=== PATIENT | female | born 1955 | race Caucasian/White ===

== ENCOUNTER 2019-04-23 10:47 | Observation (INO) | payer MEDICARE, OTHER ==
[2019-04-23 11:31] LABS: ABS Basophils 0.1 10^3/ul (0-0.2); ABS Eosinophils 0.1 10^3/ul (0-0.6); ABS Lymphocytes 2.1 10^3/ul (1.0-4.8); ABS Monocytes 0.5 10^3/ul (0-0.8); ABS Neutrophils 4.1 10^3/ul (1.5-7.7); Eosinophil % 1.4 %; Hematocrit 43 % (35-47); Lymphocyte % 31.1 %; Mean Corpuscular HGB Conc 35 g/dL (31-36); Mean Corpuscular Hemoglobin 32 pg (27-31); Mean Corpuscular Volume 92 fL (80-97); Mean Platelet Volume 9.9 fL (7.4-10.4); Nucleated Red Blood Cells % 0.1; Platelet Count 231 10^3/uL (150-450); Red Blood Count 4.63 10^6 /uL (3.70-4.87); Red Cell Distribution Width 13 % (10-15); White Blood Count 6.9 10^3/uL (3.5-10.8)
[2019-04-23] MEDS ORDERED: Metoprolol Tartrate IV* 1 MG/ML 5 ML VIAL IV ONE (11:33)
--- NOTE | 2019-04-23 11:38 | ED ---
HPI Cardiac - HPI Summary HPI Summary: Patient is a 63 y/o F presenting to ED with complaints of palpitations and fatigue. Sx have been present for the past three days and is noted to be mostly present when she is lying down to sleep. Patient also makes note of an episode five days ago when she experienced a "spell" of diaphoresis, lower back pain, and fatigue while at [facility]. This episode spontaneously resolved. Patient was evaluated by her PCP and was advised to come to ED for further evaluation. While lying in the stretcher, she reports only feeling fatigued and denies palpitations and dizziness at present. Patient denies having experienced chest pain. Patient is on Lisinopril, Metformin, and Klonopin. She denies Hx of thyroid issues. PSHx of appendectomy, cholecystectomy, breast reduction, and 2 c -sections. Patient is a non-smoker and denies alcohol and substance usage. Pt denies any fever, chills, erythema of eyes, sore throat, CP, SOB, cough, abdominal pain, N/V, dysuria, hematuria, myalgia, edema, rash, or dizziness. On triage, pain is rated 0/10, nothing is noted to aggravate/alleviate Sx. Home medications and allergies are reviewed. - History of Current Complaint Chief Complaint: EDGeneral Stated Complaint: RAPID HEART COMMING FROM DOC OFFICE Time Seen by Provider: 04/23/19 10:56 Hx Obtained From: Patient Onset/Duration: Started Days Ago, Resolved Timing: Intermittent, Lasting Days Current Severity: None Pain Intensity: 0 Pain Scale Used: 0-10 Numeric Character: Fast Aggravating Factor(s): Nothing Alleviating Factor(s): Nothing Associated Signs and Symptoms: Positive: Diaphoresis, Palpitations, Back Pain, Other: - patient endorses fatigue; denies any fever, chills, erythema of eyes, sore throat, CP, SOB, cough, abdominal pain, N/V, dysuria, hematuria, myalgia, edema, rash, or dizziness. Negative: Chest Pain, Dizziness, Shortness of Breath , Swelling, Fever, Chills, Nausea, Abdominal Pain, Calf Pain/Swelling, Vomiting - Allergy/Home Medications Allergies/Adverse Reactions: Allergies Allergy/AdvReac Type Severity Reaction Status Date / Time No Known Allergies Allergy Verified 04/23/19 11:29 Home Medications: Home Medications Lisinopril TAB* [Prinivil TAB 10 MG*] 20 mg PO DAILY 04/23/19 [History Confirmed 04/23/19] metFORMIN* [Glucophage 1000 MG TAB *] 1,000 mg PO BID 04/23/19 [History Confirmed 04/23/19] PMH/Surg Hx/FS Hx/Imm Hx Endocrine/Hematology History: Reports: Hx Diabetes - II Denies: Hx Thyroid Disease Cardiovascular History: Reports: Hx Hypertension Respiratory History: Denies: Hx Asthma, Hx Chronic Obstructive Pulmonary Disease (COPD) GI History: Reports: Hx Ulcer - gerd - Surgical History Surgery Procedure, Year, and Place: breast reduction. yasm[place]. appe. tonsils/ adenoids. csection x2 Infectious Disease History: No Infectious Disease History: Denies: Hx Hepatitis, Hx Human Immunodeficiency Virus (HIV), History Other Infectious Disease, Traveled Outside the [place] in Last 30 Days - Family History Known Family History: Negative: Cardiac Disease, Hypertension, Diabetes - Social History Alcohol Use: None Substance Use Type: Reports: None Smoking Status (MU): Never Smoked Tobacco Review of Systems Positive: Fatigue, Skin Diaphoresis. Negative: Fever, Chills Negative: Erythema Negative: Sore Throat Positive: Palpitations. Negative: Chest Pain Negative: Shortness Of Breath, Cough Negative: Abdominal Pain, Vomiting, Nausea Negative: dysuria, hematuria Positive: Myalgia - POSITIVE - BACK PAIN . Negative: Edema Negative: Rash Neurological: Other - NEGATIVE - DIZZINESS All Other Systems Reviewed And Are Negative: Yes Physical Exam - Summary Physical Exam Summary: Constitutional: Well-developed, Well-nourished, Alert. (-) Distressed Skin: Warm, Dry HENT: Normocephalic; Atraumatic Eyes: Conjunctiva normal Neck: Musculoskeletal ROM normal neck. (-) JVD, (-) Stridor, (-) Tracheal deviation Cardio: Rapid regular heart rate, Heart sounds normal; Intact distal pulses; The pedal pulses are 2+ and symmetric. Radial pulses are 2+ and symmetric. (-) Murmur Pulmonary/Chest wall: Effort normal. (-) Respiratory distress, (-) Wheezes, (-) Rales Abd: Soft, (-) tenderness, (-) Distension, (-) Guarding, (-) Rebound Musculoskeletal: (-) Edema Lymph: (-) Cervical adenopathy Neuro: Alert, Oriented x3 Psych: Mood and affect Normal Triage Information Reviewed: Yes Vital Signs On Initial Exam: Initial Vitals Temp Pulse Resp BP Pulse Ox 98.8 F 160 24 125/73 100 04/23/19 10:51 04/23/19 10:51 04/23/19 10:51 04/23/19 10:51 04/23/19 10:51 Vital Signs Reviewed: Yes Diagnostics - Vital Signs Vital Signs Temp Pulse Resp BP Pulse Ox 04/23/19 11:15 97 04/23/19 11:10 156 18 97 04/23/19 11:09 156 16 138/104 97 04/23/19 10:51 98.8 F 160 24 125/73 100 - Laboratory Result Diagrams: 04/24/19 05:50 04/24/19 05:49 Lab Statement: Any lab studies that have been ordered have been reviewed, and results considered in the medical decision making process. - Radiology CHEST X-RAY Radiology Interpretation Completed By: Radiologist Summary of Radiographic Findings: IMPRESSION: NO ACTIVE CARDIOPULMONARY DISEASE. THIS REPORT WAS REVIEWED BY DR. GALINDO. - EKG 1100 Cardiac Rate: Other Rate - atrial flutter with rate of 157 BPM EKG Rhythm: Atrial Flutter Summary of EKG Findings: EKG showed atrial flutter with rate of 157 BPM, no STEMI. Re-Evaluation - Re-Evaluation First Eval Re-Evaluation Time: 12:13 Comment: Patient was given two rounds of adenosine. She experienced a momentary response to the medications, but no lasting effect. Patient to finish IV fluid bolus and then will be started on Cardizem drip. Disposition - Course Course Of Treatment: Patient is a 63 y/o F presenting to ED with complaints of palpitations and fatigue. Sx have been present for the past three days and is noted to be mostly present when she is lying down to sleep. Patient also makes note of an episode five days ago when she experienced a "spell" of diaphoresis, lower back pain, and fatigue while at [facility]. This episode spontaneously resolved. Patient was evaluated by her PCP and was advised to come to ED for further evaluation. While lying in the stretcher, she reports only feeling fatigued and denies palpitations and dizziness at present. Patient denies having experienced chest pain. Patient is on Lisinopril, Metformin, and Klonopin. She denies Hx of thyroid issues. PSHx of appendectomy, cholecystectomy , breast reduction, and 2 c-sections. Patient is a non-smoker and denies alcohol and substance usage. On physical exam, patient is noted to have rapid regular heart rate. EKG showed atrial flutter with rate of 157 BPM, no STEMI. Labs showed MCH 32, potassium 3, chloride 100, anion gap 12, BUN/creatinine ratio 36.,4, glucose 411, lactic acid 2.8, TSH 7.39, Free t4 0.82. First trop was negative. CXR IMPRESSION: NO ACTIVE CARDIOPULMONARY DISEASE. During ED course, patient received fluids, klor con er tab 40 meq PO, Lopressor 5 mg IV, insulin 5 units SUBCUT. Patient was given two rounds of adenosine, 18 mg in total. She experienced a momentary response to the medications, but no lasting effect. Patient to finish IV fluid bolus and then will be started on Cardizem drip. Patient was given diltiazem 10 mg IV SLOW PU. 1239 Patients case was discussed with Dr. Peck, Dr. Peck will evaluate the patient. 1302 Dr. Peck had a conversation with tank insulator rubber with regards to possible cardioversion of the patient, rehabilitation worker to be consulted. 1307 Patients case was discussed with DR. Dey (rehabilitation worker), who recommends FRANCES cardioversion tomorrow morning, glucose control, and anticoagulants. This was relayed to Dr. Peck, who accepts the patient for admission. Patient is agreeable with admission. - Diagnoses Provider Diagnoses: Atrial flutter - Physician Notifications Discussed Care Of Patient With: Susan Peck Time Discussed With Above Provider: 12:39 Instructed by Provider To: Other - 1239 Patients case was discussed with Dr. Peck, Dr. Peck will evaluate the patient. 1302 Dr. Peck had a conversation with tank insulator rubber with regards to possible cardioversion of the patient, rehabilitation worker to be consulted. 1307 Patients case was discussed with DR. Dey (rehabilitation worker), who recommends FRANCES cardioversion tomorrow morning, glucose control, and anticoagulants. This was relayed to Dr. Peck, who accepts the patient for admission. - Critical Care Time Critical Care Time: 30-74 min - 60 minutes Discharge - Sign-Out/Discharge Documenting (check all that apply): Patient Departure - admit - Discharge Plan Condition: Stable Disposition: ADMITTED TO [facility] - Billing Disposition and Condition Condition: STABLE Disposition: Admitted to [facility] - Attestation Statements Document Initiated by Chaparro: Yes Documenting Scribe: ROSEMARY CASTELLANOS Provider For Whom Chaparro is Documenting (Include Credential): MAGDIEL GALINDO MD Scribe Attestation: ROSEMARY Stevens, scribed for MAGDIEL GALINDO MD on 04/27/19 at 0818. Scribe Documentation Reviewed: Yes Provider Attestation: The documentation as recorded by the ROSEMARY riggins accurately reflects the service I personally performed and the decisions made by me, MAGDIEL GALINDO MD Status of Scribe Document: Viewed
[2019-04-23 11:50] LABS: Albumin 4.2 g/dL (3.2-5.2); Calcium 10.2 mg/dL (8.6-10.3); Total Bilirubin 0.6 mg/dL (0.2-1.0)
[2019-04-23] MEDS ORDERED: Potassium Chlor TAB* 20 MEQ TAB.ER PO ONE (11:52)
[2019-04-23 11:55] LABS: Troponin I 0.01 ng/mL (<0.04)
[2019-04-23] MEDS ORDERED: NS 0.9% 1000 ML** 1,000 ML IV ONE (11:55)
[2019-04-23 11:56] LABS: Albumin/Globulin Ratio 1.4 (1-3); BUN/Creatinine Ratio 36.4 (8-20); EGFR African American 134.2 (>60); EGFR Non-African American 110.9 (>60); Total Protein 7.2 g/dL (6.4-8.9)
[2019-04-23] MEDS ORDERED: Adenosine* 3 MG/ML VIAL IV PUSH ONE (11:56)
[2019-04-23] MEDS ORDERED: Adenosine* 3 MG/ML VIAL ONE (11:57)
[2019-04-23] MEDS ORDERED: Diltiazem IV push/loading dose 5 MG/ML 5 ML vial (25 mg) IV SLOW PU ONE (12:14)
[2019-04-23 12:20] LABS: TSH (Thyroid Stimulating Horm) 7.39 mcIU/mL (0.34-5.60)
[2019-04-23 12:24] LABS: Free T4 0.82 ng/dL (0.61-1.12)
[2019-04-23] MEDS ORDERED: Insulin REGULAR(*) 1 UNITS UNIT SUBCUT ONE (12:26)
[2019-04-23] MEDS ORDERED: Digoxin IV* 0.5 MG/2 ML AMP (0.25 MG/ML) IV SLOW PU ONE ×2 (15:01→20:05)
[2019-04-23] MEDS ORDERED: clonazePAM TAB(*) 0.5 MG PO PRN (15:02)
[2019-04-23] MEDS ORDERED: Acetaminophen TAB* 325 MG PO PRN (15:03)
[2019-04-23] MEDS ORDERED: Dextrose 50% Syringe 50 ML* 25 GM/50 ML SYRINGE IV PUSH PRN (15:06)
[2019-04-23] MEDS ORDERED: NS 0.9% 1000 ML** 1,000 ML IV SCH (15:15)
[2019-04-23 15:38] LABS: Magnesium 1.1 mg/dL (1.9-2.7)
--- NOTE | 2019-04-23 17:42 | HP ---
CC: Dr. Day; Dr. Dey, Cardiology * HISTORY AND PHYSICAL: DATE OF ADMISSION: 04/23/19 PRIMARY CARE PROVIDER: Dr. Day. OTHER PROVIDER: Dr. Dey, Cardiology. ATTENDING PHYSICIAN: Dr. Peck * (dictated by Jorge L Castro NP). CHIEF COMPLAINT: Tachycardia. HISTORY OF PRESENT ILLNESS: Ms. Bailey is a 63-year-old female with a past medical history significant for diabetes, hypertension, depression; who presents to the emergency department today per instructions from her primary care provider. The patient reports that last weekend she was walking in [facility] and suddenly felt low back pain, bilateral leg pain and severely fatigued. The patient sat down, took medication for her back, and went home. She reports that the episode resolved. Given these symptoms on Saturday morning, she called her primary care provider for a followup appointment and she was scheduled to see the primary care provider today. She reports on presentation to her primary care provider's office she was noted to be tachycardic; therefore , was sent to the emergency department. The patient also reports that for the past 3 days she has noted her heart racing when she lies down and turns her head to the right. In addition, she has had a few episodes of diaphoresis, specifically with exertion. The patient is unsure if her back and leg pain has improved much as she has been resting and not exerting herself much. The patient denies fever, chills, sore throat, chest pain, shortness of breath, cough, abdominal pain, nausea, vomiting, dysuria, hematuria, myalgias, edema, rash, dizziness, recent travel, recent illness, recent antibiotic use. The patient does report diarrhea that has been ongoing for about 1 week and has not worsened or improved in its severity. She denies abdominal pain. While in the emergency department, the patient had an EKG, which revealed atrial flutter at a rate of 157. Given these findings, the patient had 2 rounds of adenosine which had no lasting effect. She was given IV bolus of fluid. She was given 10 mg IV of diltiazem, which had no effect on heart rate, but did decrease her blood pressure to the low 90 systolically. Given the patient's continued arrhythmia, she will be admitted to telemetry for further evaluation and treatment. PAST MEDICAL HISTORY: 1. Diabetes. 2. Hypertension. 3. Depression. PAST SURGICAL HISTORY: 1. Appendectomy. 2. Cholecystectomy. 3. Breast reduction. 4. . HOME MEDICATIONS: 1. Metformin 1000 mg p.o. b.i.d. 2. Lisinopril 20 mg p.o. daily. 3. Cymbalta 90 mg p.o. daily. 4. Nexium 40 mg p.o. daily. 5. Clonazepam 1.5 mg p.o. t.i.d. p.r.n. ALLERGIES: No known drug allergies. FAMILY HISTORY: The patient has unknown family history as she was adopted. SOCIAL HISTORY: The patient reports she is a previous smoker. She reports she quit about 30 years ago. The patient reports minimal social alcohol intake. The patient denies drug use. The patient is retired. The patient lives alone. The patient has been independent in her ADLs. The patient's surrogate decision maker will be her daughter, Angelita Campos, , in the event she cannot make decisions for herself. REVIEW OF SYSTEMS: A 14-point review of systems was performed and all pertinent positive and negative findings are in the HPI. All others were negative. PHYSICAL EXAMINATION GENERAL: Ms. Bailey is a well-developed, well-nourished, slightly obese woman, sitting in bed, appears to be in no acute distress. Appears stated age. VITAL SIGNS: Temp 98.8, HR 155, RR 19, O2 saturation 98% on room air, BP manually 92/66. HEENT: EOMs intact. PERRLA. Oral mucosa is moist without lesions. Posterior pharynx is clear. NECK: Full range of motion. No lymphadenopathy. RESPIRATORY: Symmetrical chest expansion. No accessory muscle use. Lungs are clear to auscultation. No rhonchi, wheezes, or rales. CARDIAC: S1, S2 present. No murmurs, rubs, or gallops. Fast rate. No JVD. ABDOMEN: Soft, nontender to palpation. Bowel sounds normoactive. EXTREMITIES: Skin is warm and smooth bilaterally. No edema. No clubbing or cyanosis. Pedal pulses 2+ bilaterally. MUSCULOSKELETAL: Full range of motion. No pain or deformities. NEURO: Awake, alert, and oriented x4. Motor strength is 5/5 in the upper and lower extremities. SKIN: Grossly intact without lesions. DIAGNOSTIC STUDIES/LAB DATA: WBC 6.9, hemoglobin 15, hematocrit 43, platelets 231. Sodium 137, potassium 3.0, chloride 100, carbon dioxide 25, anion gap 12, BUN 20, creatinine 0.55, glucose 411, lactic acid 2.8. TSH 7.39. ASSESSMENT AND PLAN: Ms. Bailey is a 63-year-old female with a past medical history significant for diabetes, hypertension, depression; who presents to the emergency department today with increased heart rate and was found to be in atrial fibrillation/flutter with rapid ventricular response. The patient will be admitted OBV for further evaluation and possible FRANCES with cardioversion. 1. Atrial flutter with rapid ventricular response. As mentioned above, the patient received a fluid bolus while in the emergency department with no effect on heart rate. The patient received adenosine, which had momentary effect. The patient received Cardizem, which had momentary effect on heart rate, but decreased blood pressure. I have placed a call to Dr. Dey, who recommended digoxin 0.5 mg IV push x1 now. Plan for the patient to be n.p.o. after midnight. Plan for the patient to undergo a FRANCES with possible cardioversion tomorrow. In preparation for this, the patient will be started on Eliquis for anticoagulation. 2. Hypokalemia. As mentioned above, the patient's potassium in the ER was 3.0. The patient received 40 mEq p.o. in the ED. I will repeat this tomorrow and possibly the patient will need further repletion. 3. Electrolyte derangement. Given the patient's low potassium, I have also ordered magnesium to be added on to the patient's ER labs. 4. Hyperglycemia. As mentioned above, the patient's glucose in the emergency department was 411. The patient received 5 units of insulin while in the emergency department. I have ordered this to be repeated and I will dose insulin based on that result. I have also placed the patient on fingersticks a.c. and h.s. and a sliding scale. The patient has known history of diabetes and is on metformin. I have held the patient's metformin while hospitalized. I have also added a hemoglobin A1c to be obtained tomorrow. 5. Lactic acid. The patient has a slightly elevated lactic acid of 2.8. I have ordered a repeat lactic acid to be drawn now as it has been 4 hours. 7. Hypothyroid. As mentioned above, the patient does have an elevated TSH at 7.39. I suspect this could be secondary to the patient's acute illness; therefore, I will not place the patient on any medication at this time. I would recommend that this is repeated as an outpatient. 8. Diabetes. As mentioned above, the patient will be on a sliding scale and fingersticks a.c. and h.s. Metformin will be held. 9. Hypertension. I will hold the patient's home medication of lisinopril as she is hypotensive and I will monitor accordingly. 10. Depression. The patient has been slowly decreasing herself from Cymbalta. She reports her last dose was yesterday. She reports she has been weaning for about 2 weeks. I have reordered this as the patient would like to restart it, although we should discuss possible SSRI as an outpatient. 11. FEN: The patient will receive a heart-healthy diet with no caffeine and will be n.p.o. after midnight. The patient will also receive IV fluids given her hyperglycemia and slightly elevated lactic acid. 12. Code status: The patient is a full code. 13. DVT prophylaxis: Based on the DVT Risk Assessment, the patient is high risk. I will order Eliquis as mentioned above. TIME SPENT: Approximately 65 minutes was spent on this admission, greater than half the time was spent with the patient and her family obtaining my history, performing physical exam, and reviewing my plan of care. The case has been reviewed with my attending, Dr. Davis, who is in agreement with my plan of care. Reviewed by JORGE L CASTRO NP 04/25/19 @ 1812 [id number]/[facility] #: [id number] [place]
[2019-04-23] MEDS: Insulin LISPRO* 1 UNITS UNIT SUBCUT SCH ×2 (17:50→20:56)
[2019-04-23] MEDS: Metoprolol Tartrate IV* 1 MG/ML 5 ML VIAL IV PRN (19:53)
[2019-04-23] MEDS: Apixaban* 5 MG TAB PO SCH (19:53)
[2019-04-23] MEDS ORDERED: Magnesium Sulf 4 GM/100 ML IV* 4,000 MG/100 ML BAG IVPB ONE (20:07)
--- NOTE | 2019-04-23 20:42 | CONSULT ---
Subjective Date of Service: 04/23/19 Interval History: Admission Date: 04/23/19 Consult date 04/23/2019 Service: Hospitalist PCP: Dr. Day CC: Weakness, back pain Reason for consult: atrial flutter HISTORY OF PRESENT ILLNESS: Ms. Bailey is a 63-year-old woman with a history as below. She tells me she has felt sort of fatigued for weeks if not months. Last weekend she developed back and leg pain while ambulating which resolved. She also had some episodes exertional fatigue but not outright dyspnea, chest pain, palpitations or syncope. She was found with rapid atrial flutter and heart rates with IV lopressor, diltiazem and digoxin have been difficult to control without causing lower BP's. Patient denies hx of CHF, MT or TIA/CVA PAST MEDICAL HISTORY: 1. Diabetes, patient is uncertain of hgba1c 2. Hypertension. 3. Depression. 4. GERD. Chronic PPI. Had EGD in her 30's PAST SURGICAL HISTORY: 1. Appendectomy. 2. Cholecystectomy. 3. Breast reduction. 4. . ALLERGIES: No known drug allergies. FAMILY HISTORY: The patient has unknown family history as she was adopted. SOCIAL HISTORY: The patient reports she is a previous smoker. She reports she quit about 30 years ago. The patient reports minimal social alcohol intake. The patient denies drug use. The patient is retired. The patient lives alone. The patient has been independent in her ADLs. The patient's surrogate decision maker will be her daughter, Angelita Campos, , in the event she cannot make decisions for herself. Medications Active Medications: Acetaminophen (Tylenol Tab*) 650 mg PO Q4H PRN PRN Reason: FEVER/PAIN Last Admin: 04/23/19 18:47 Dose: 650 mg Apixaban (Eliquis*) 5 mg PO BID JORJE Last Admin: 04/23/19 19:53 Dose: 5 mg Clonazepam (Klonopin Tab(*)) 1.5 mg PO TID PRN PRN Reason: ANXIETY Dextrose (D50w Syringe 50 Ml*) 12.5 gm IV PUSH .FOR FS < 60 - SS PRN PRN Reason: FS < 60 Duloxetine HCl (Cymbalta Cap*) 90 mg PO DAILY [facility] Magnesium Sulfate (Magnesium Sulf 4 Gm/100 Ml Iv*) 4,000 mg in 100 mls @ 33.333 mls/hr IVPB ONCE ONE Stop: 04/23/19 23:06 Insulin Human Lispro (Humalog*) 0 units SUBCUT ACHS [facility]; Protocol Last Admin: 04/23/19 17:50 Dose: 6 unit Metoprolol Tartrate (Lopressor Iv*) 5 mg IV Q6H PRN PRN Reason: HEART RATE/PULSE Last Admin: 04/23/19 19:53 Dose: 5 mg Pantoprazole Sodium (Protonix Tab*) 40 mg PO DAILY [facility] Home Medications: DULoxetine DR CAP* [Cymbalta CAP*] 90 mg PO DAILY 10/19/15 [History Confirmed ] Esomeprazole Magnesium [Nexium] 40 mg PO DAILY 10/19/15 [History Confirmed 04/23] clonazePAM TAB(*) [KlonoPIN TAB(*)] 1.5 mg PO TID PRN 10/19/15 [History Confirmed 04/23/19] Lisinopril TAB* [Prinivil TAB*] 20 mg PO DAILY 04/23/19 [History Confirmed 04/23] metFORMIN* [Glucophage 1000 MG TAB *] 1,000 mg PO BID 04/23/19 [History Confirmed 04/23/19] Review of Systems - Measurements Intake and Output: Intake and Output Last 24 Hours 04/21/19 04/22/19 04/23/19 04/24/19 06:59 06:59 06:59 06:59 Intake Total 1120 Balance 1120 Weight 243 lb 1.6 oz Intake: IV Fluids 1000 Oral 120 - Review of Systems Constitutional Symptoms: Positive: Weakness, Fatigue Negative: Weight Gain, Weight Loss, Fever, Night Sweats Dermatology: Negative: Rash, Skin Lesions HEENT: Negative: Change in Hearing, Vertigo Eyes: Negative: Change in Vision, Double Vision Thyroid: Negative: Cold Intolerance, Heat Intolerance, Weight Loss, Weight Gain Pulmonary: Negative: Cough, Sputum, Hemoptysis, Respiratory Distress, COPD, Asthma Cardiology: Negative: Chest Pain, Palpitations, Swelling of Ankles, Edema, Faintness, Syncope, Claudication, Paroxysmal Nocturnal Dyspnea, Orthopnea Gastroenterology: Negative: Abdominal Pain, Nausea, Vomiting, Anorexia, Blood in Stools, Haematemesis Genital - Urinary: Negative: Hematuria, Polyuria Musculoskeletal: Negative: Joint Pain, Joint Stiffness, Arthritis Endocrinology: Positive: Obesity, Diabetes, Hyperglycemia Negative: Polydipsia, Polyuria Hematologic/Lymphatic: Negative: Anemia, Hx Leukemia, Hx Lymphoma, Use of Anticoagulant, Use of Antiplatelet Drugs Neurology: Negative: Headaches, Migraines, Change in Vision, Diplopia, Dizziness, Hx of Stroke\TIA, Hx Seizures Psychiatry: Negative: Unusual Anxiety, Suicidal Ideation Allergic/Immunologic: Negative: Hx HIV, Immunocompromise Review of Systems Statement: All other review of systems negative, unless stated above. Objective Vital Signs: Temp Pulse Resp BP Pulse Ox 98 F 153 15 130/74 99 04/23/19 16:48 04/23/19 16:48 04/23/19 16:48 04/23/19 16:48 04/23/19 16:48 Oxygen Devices in Use Now: None Appearance: nad, pleasant Ears/Nose/Mouth/Throat: Clear Oropharnyx, Mucous Membranes Moist Neck: Trachea Midline, - - uncertain jvp Respiratory: Symmetrical Chest Expansion and Respiratory Effort, Clear to Auscultation Cardiovascular: No Edema, - - tachycardic, regular Abdominal: NL Sounds; No Tenderness; No Distention Extremities: No Edema Skin: No Rash or Ulcers Neurological: Alert and Oriented x 3, NL Sensation Laboratory Results: 04/23/19 11:18 04/23/19 11:18 mg 1.1 Total Bilirubin 0.60 mg/dL (0.2-1.0) 04/23/19 11:18 AST 20 U/L (13-39) 04/23/19 11:18 ALT 26 U/L (7-52) 04/23/19 11:18 Alkaline Phosphatase 92 U/L (34-104) 04/23/19 11:18 Total Protein 7.2 g/dL (6.4-8.9) 04/23/19 11:18 Albumin 4.2 g/dL (3.2-5.2) 04/23/19 11:18 Globulin 3.0 g/dL (2-4) 04/23/19 11:18 Albumin/Globulin Ratio 1.4 (1-3) 04/23/19 11:18 TSH 7.39 mcIU/mL (0.34-5.60) H 04/23/19 11:18 04/23/19 04/23/1904/23/19 11:18 13:27 15:13 Troponin I 0.01 0.01 0.01 Diagnostic Imaging: Exam Date: 04/23/19 CHEST AP OR PORT IMPRESSION: NO ACTIVE CARDIOPULMONARY DISEASE. EKG Data: ekg today shows 2:1 atrial flutter, likely typical, no ischemic changes, rate ~ 160 bpm Assessment/Plan 1. Symptomatic typical rapid atrial flutter with difficult HR control of uncertain duration - Chads2-vasc score at least 4 2. Low magnesium level, significant - Level 1.1 - suspect PPI related 3. Low potassium - 3.0 - Likely related to #2 4. Obesity 5. DM 6. HTN 7. ? hypothyroidism - Eliquis 5 mg po bid. Risks, benefits alternatives discussed. Advised avoid aspirin and nsaids - For tonight given another 250 mcg IV digoxin x 1 now (ordered). Can use PRN IV lopressor overnight and given another 250 mcg IV digoxin 8 hours from now if needed. Will plan on FRANCES/CV tomorrow (risks/benefits/alternatives discussed and patient wished to proceed) if does not convert with electrolyte replacement - Give 4 grams IV magnesium x 1 now (ordered). Recheck tomorrow AM. Will need chronic high dose oral supplementation if stays on PPI and this should keep potassium higher as well. 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 Thank you for allowing me to participate in the cardiovascular care of this patient. Please do not hesitate to contact me with questions or concerns.
[2019-04-24 05:58] LABS: ABS Basophils 0.1 10^3/ul (0-0.2); ABS Eosinophils 0.2 10^3/ul (0-0.6); ABS Lymphocytes 2.8 10^3/ul (1.0-4.8); ABS Monocytes 0.4 10^3/ul (0-0.8); ABS Neutrophils 3.5 10^3/ul (1.5-7.7); Eosinophil % 2.4 %; Hematocrit 40 % (35-47); Mean Corpuscular HGB Conc 35 g/dL (31-36); Mean Corpuscular Hemoglobin 32 pg (27-31); Mean Corpuscular Volume 91 fL (80-97); Mean Platelet Volume 9.8 fL (7.4-10.4); Nucleated Red Blood Cells % 0.1; Platelet Count 195 10^3/uL (150-450); Red Blood Count 4.37 10^6 /uL (3.70-4.87); Red Cell Distribution Width 12 % (10-15)
[2019-04-24] MEDS: Metoprolol Tartrate IV* 1 MG/ML 5 ML VIAL IV PRN (05:59)
[2019-04-24 06:16] LABS: Albumin 3.7 g/dL (3.2-5.2); Albumin/Globulin Ratio 1.5 (1-3); BUN/Creatinine Ratio 21.7 (8-20); Calcium 8.8 mg/dL (8.6-10.3); EGFR Non-African American 136.3 (>60); Globulin 2.5 g/dL (2-4); HDL Cholesterol 29.6 mg/dL; Magnesium 1.6 mg/dL (1.9-2.7); Potassium 3.1 mmol/L (3.5-5.0); Total Bilirubin 1.1 mg/dL (0.2-1.0); Total Protein 6.2 g/dL (6.4-8.9)
[2019-04-24] MEDS ORDERED: Magnesium Sulf 4 GM/100 ML IV* 4,000 MG/100 ML BAG IVPB ONE (07:39)
[2019-04-24] MEDS ORDERED: Potassium Chlor TAB* 20 MEQ TAB.ER PO ONE (07:40)
[2019-04-24] MEDS ORDERED: KCL 20 MEQ/100 ML IVPREMIX* 20 MEQ/100 ML BAG IV ONE (07:41)
--- NOTE | 2019-04-24 07:49 | PN ---
Subjective Date of Service: 04/24/19 Interval History: f/u atrial flutter, electrolyte deficiencies resting comfortably HR 100's at rest in flutter No cp or dyspnea Medications Active Medications: Acetaminophen (Tylenol Tab*) 650 mg PO Q4H PRN PRN Reason: FEVER/PAIN Last Admin: 04/23/19 18:47 Dose: 650 mg Apixaban (Eliquis*) 5 mg PO BID [facility] Last Admin: 04/23/19 19:53 Dose: 5 mg Atorvastatin Calcium (Lipitor*) 40 mg PO 1700 [facility] Clonazepam (Klonopin Tab(*)) 1.5 mg PO TID PRN PRN Reason: ANXIETY Dextrose (D50w Syringe 50 Ml*) 12.5 gm IV PUSH .FOR FS < 60 - SS PRN PRN Reason: FS < 60 Duloxetine HCl (Cymbalta Cap*) 90 mg PO DAILY [facility] Famotidine (Pepcid Tab*) 20 mg PO BID [facility] Magnesium Sulfate (Magnesium Sulf 4 Gm/100 Ml Iv*) 4,000 mg in 100 mls @ 33.333 mls/hr IVPB ONCE ONE Stop: 04/24/19 10:38 Potassium Chloride (Potassium Chloride 20 Meq/100 Ml Ivpremix*) 20 meq in 100 mls @ 50 mls/hr IV ONCE ONE Stop: 04/24/19 09:40 Insulin Human Lispro (Humalog*) 0 units SUBCUT [facility]; Protocol Last Admin: 04/23/19 20:56 Dose: 6 unit Magnesium Oxide (Magox 400 Tab*) 400 mg PO BID [facility] Metoprolol Succinate (Toprol Xl Tab*) 25 mg PO BID [facility] Potassium Chloride (Klor Con Er Tab*) 40 meq PO ONCE ONE Stop: 04/24/19 07:41 Objective Vital Signs: Temp Pulse Resp BP Pulse Ox 97 F 73 17 127/69 97 04/24/19 04:00 04/24/19 04:00 04/24/19 04:00 04/24/19 04:00 04/24/19 04:00 Oxygen Devices in Use Now: None Appearance: nad, pleasant Ears/Nose/Mouth/Throat: Clear Oropharnyx, Mucous Membranes Moist Neck: Trachea Midline, - - uncertain jvp Respiratory: Symmetrical Chest Expansion and Respiratory Effort, Clear to Auscultation Cardiovascular: No Edema, - - irregular, no significant murmur noted Abdominal: NL Sounds; No Tenderness; No Distention Extremities: No Edema Skin: No Rash or Ulcers Neurological: Alert and Oriented x 3, NL Sensation Laboratory Results: 04/24/19 05:50 04/24/19 05:49 Total Bilirubin 1.10 mg/dL (0.2-1.0) H 04/24/19 05:49 AST 21 U/L (13-39) 04/24/19 05:49 ALT 24 U/L (7-52) 04/24/19 05:49 Alkaline Phosphatase 70 U/L (34-104) 04/24/19 05:49 B-Natriuretic Peptide 218 pg/mL (<=100) H 04/24/19 05:50 Total Protein 6.2 g/dL (6.4-8.9) L 04/24/19 05:49 Albumin 3.7 g/dL (3.2-5.2) 04/24/19 05:49 Globulin 2.5 g/dL (2-4) 04/24/19 05:49 Albumin/Globulin Ratio 1.5 (1-3) 04/24/19 05:49 Triglycerides 235 mg/dL 04/24/19 05:49 Cholesterol 173 mg/dL 04/24/19 05:49 LDL Cholesterol 96 mg/dL 04/24/19 05:49 HDL Cholesterol 29.6 mg/dL 04/24/19 05:49 TSH 7.39 mcIU/mL (0.34-5.60) H 04/23/19 11:18 04/23/19 04/23/19 04/23/19 11:18 13:27 15:13 Troponin I 0.01 0.01 0.01 mg replaced from 1.1 to 1.6 Diagnostic Imaging: Exam Date: 04/23/19 CHEST AP OR PORT IMPRESSION: NO ACTIVE CARDIOPULMONARY DISEASE. EKG Data: ekg today shows 2:1 atrial flutter, likely typical, no ischemic changes, rate ~ 160 bpm ekg today shows typical atrial flutter, rate controlled Assessment/Plan 1. Typical atrial flutter - Chads2-vasc score at least 4 2. Low magnesium level, significant - Level 1.1 on admission - suspect PPI related 3. Low potassium - 3.0 on admission - Likely related to #2 4. Obesity 5. DM 6. HTN 7. ? hypothyroidism - Continue Eliquis 5 mg po bid. - Start toprol 25 mg po bid (ordered) - Give another 4 grams IV magnesium x 1 now (ordered) - change PPI to H2 carley and start oral magnesium (ordered) - Give both oral and IV K today (ordered) - Start primary prevention lipitor 40 mg (, ordered, lipids noted) - Hgba1c pending, as per Primary service - Plan for FRANCES/CV later today, potential for discharge afterwards pending clinical course - Even with electrolyte deficiency as a potential cause, mcfp I think patient would likely benefit from an atrial flutter ablation as an outpatient. Thank you for allowing me to participate in the cardiovascular care of this patient. Please do not hesitate to contact me with questions or concerns.
[2019-04-24] MEDS: Insulin LISPRO* 1 UNITS UNIT SUBCUT SCH ×2 (08:00→14:52)
[2019-04-24] MEDS ORDERED: Metoprolol Succinate XL TAB* 25 MG PO SCH (08:00)
[2019-04-24] MEDS: Apixaban* 5 MG TAB PO SCH (08:01)
[2019-04-24] MEDS ORDERED: Famotidine TAB* 20 MG PO SCH (09:00)
[2019-04-24] MEDS ORDERED: Pantoprazole TAB * 40 MG TAB PO SCH (09:00)
[2019-04-24] MEDS ORDERED: Magnesium Oxide TAB* 400 MG PO SCH (09:00)
[2019-04-24] MEDS ORDERED: DULoxetine DR CAP* 30 MG CAP.DR PO SCH (09:00)
[2019-04-24] MEDS ORDERED: fentaNYL* 50 MCG/ML 2 ML VIAL (100 MCG VIAL) ONE ×2 (11:17→12:42)
[2019-04-24] MEDS ORDERED: Naloxone* 0.4 MG/ML 1 ML VIAL ONE (11:17)
[2019-04-24] MEDS ORDERED: Midazolam* 1 MG/ML 5 ML VIAL (5 MG) ONE (11:17)
[2019-04-24] MEDS ORDERED: Flumazenil* 0.1 MG/ML 5 ML MDV ONE (11:18)
[2019-04-24] MEDS ORDERED: Lidocaine 2% VISCOUS* 15 ML UDC ONE (11:18)
--- NOTE | 2019-04-24 13:05 | PROCNOTE ---
Cardiology Procedure Note FRANCES/CV 04/24/2019 Risks, benefits alternative discussed patient wished to proceed FRANCES no LA/LEOBARDO thrombus Patient received eliquis 5 mg po this AM 10 mg IV versed, 125 mcg IV fentanyl used for sedation Patient converted from 2:1 atrial flutter 150 bpm to NSR/ST ~ 100 bpm No complications Will increase toprol to 50 mg po bid (ordered) Continue other medications. If patient remains without further arrhythmias can be discharged from a cardiac standpoint later today with appropriate changes made in her diabetes medications (hgba1c 10.5) Will arrange cardiology follow up
--- NOTE | 2019-04-24 15:23 | TEE ---
*[facility]* [place] [address] Fax #: [phone] Transesophageal Echocardiogram Patient: Lynn, Height: 69 in / Eryn 175.3 cm : 1955 Weight: 240.5 lb / Study Date: 04/24/2019 109.3 kg Age: 63 BP: 139 / 71 Gender: F BMI/BSA: 35.6 kg/m^2 HR: / 2.24 m^2 *Molded Goods Inspector Trimmer: * Pebbles Cardenas RDCS RN *Referring Physician: * Denae MadrigalReading Physician: * Ky Dey MD Indications: Atrial Flutter. History: Risk factors: Hypertension. Diabetes mellitus. Conclusions Summary: 1. Left ventricle: Systolic function is normal. Wall motion is normal; there are no regional wall motion abnormalities. 2. Left atrium: The atrium is moderately to severely dilated. There is no evidence of a thrombus in the atrial cavity or appendage. 3. Aorta: There is mild atherosclerotic plaque visualized in the aorta. 4. No significant valvular abnormalities noted. Recommendations: Study followed by successful cardioversion from rapid atrial flutter to sinus rhythm. Study data: Diagnostic Transesophageal Echocardiogram Consent: The risks and benefits of the procedure, including alternatives were discussed with the patient and/or their health care applications sales representative and written informed consent was obtained. Procedure: Initial setup: The patient was brought to the laboratory in the fasting state.Intravenous access was obtained. Surface ECG leads, heart rate, heart rhythm, blood pressure measurements, pulse oximetric signals, and mainstream end-tidal CO2 tracings were monitored throughout the procedure. Sedation. Moderate sedation was administered by nursing staff. History and physical as well as labs were reviewed. An oral bite block was inserted for protection of oral dentition. The patient was placed in the left lateral decubitus position. Topical anesthesia was obtained using viscous lidocaine. A transesophageal probe was inserted by the attending ruching machine operator. Transesophageal echocardiography was performed, image quality was good, and all standard views were attempted within the limitations of patient tolerance and safety. Multiple 2D, color flow Doppler and spectral Doppler images were obtained. The transesophageal probe was removed. A bubble study was performed on Image 66. Location: Procedure room. Patient status: Inpatient. Patient room number: 431. Study completion: The patient tolerated the procedure well. There were no complications. Administered medications: Midazolam 10 mg IV. Fentanyl 125 mcg IV. Findings Left ventricle: The cavity size is normal. Systolic function is normal. Wall motion is normal; there are no regional wall motion abnormalities. Right ventricle: The cavity size is normal. Systolic function is normal. The estimated peak pressure is 31 mm Hg. Left atrium: The atrium is moderately to severely dilated. The appendage is of normal size. Emptying velocity is normal. There is no evidence of a thrombus in the atrial cavity or appendage. Right atrium: The atrium is mildly dilated. Atrial septum: No defect or patent foramen ovale is identified. Bubble study was negative. Image 66. Mitral valve: The valve is structurally normal. There is no evidence of stenosis. There is trace regurgitation. Aortic valve: The valve is structurally normal. The valve is trileaflet. There is no evidence of stenosis. There is no regurgitation. Tricuspid valve: The valve is structurally normal. There is no evidence of stenosis. There is mild regurgitation. Pulmonic valve: The valve is structurally normal. There is no evidence of stenosis. There is mild regurgitation. Aorta: There is mild atherosclerotic plaque visualized in the aorta. The aortic root is not dilated. The ascending aorta is not dilated. Pericardium: There is no pericardial effusion. Pulmonary arteries: The main pulmonary artery is normal-sized. Systolic pressure is within the normal range, estimated to be 31 mm Hg. Systemic veins: Inferior vena cava: The vessel is normal in size. Superior vena cava: The vessel is appears normal. Pulmonary veins: 2 of 4 veins are well seen. The flow of the pulmonary veins appears normal. Measurements Right ventricle Value Ref Tricuspid valve Value Ref Pressure, S 31 mm Hg ---- TR peak v 2.4 m/sec <=2.8 Peak RV-RA grad, S 23 mm Hg ----- Right atrium Value Ref Estimated RAP 8 mm Hg ---- Aortic root Value Ref Root diam 2.7 cm <4.3 Aortic valve Value Ref Evelyn diam, ED 2.0 cm ---- Ascending aorta Value Ref AAo AP diam, S 2.9 cm ----- Mitral valve Value Ref Peak E 0.91 m/sec ---- Pulmonary artery Value Ref Decel time 80 ms ---- Pressure, S 31.0 mm Hg ----- Peak grad, D 3.3 mm Hg ---- Legend: (L) and (H) manuel values outside specified reference range. Prepared and electronically signed by Ky Dey MD 04/24/2019 15:22
[2019-04-24 15:35] VITALS: BP 133/61
[2019-04-24] MEDS ORDERED: Atorvastatin* 40 MG TAB PO SCH (17:00)
--- NOTE | 2019-04-24 17:06 | PN ---
Subjective Date of Service: 04/24/19 Objective Active Medications: Acetaminophen (Tylenol Tab*) 650 mg PO Q4H PRN Apixaban (Eliquis*) 5 mg PO BID [facility] Atorvastatin Calcium (Lipitor*) 40 mg PO 1700 [facility] Clonazepam (Klonopin Tab(*)) 1.5 mg PO TID PRN Dextrose (D50w Syringe 50 Ml*) 12.5 gm IV PUSH .FOR FS < 60 - SS PRN Duloxetine HCl (Cymbalta Cap*) 90 mg PO DAILY [facility] Famotidine (Pepcid Tab*) 20 mg PO BID [facility] Insulin Human Lispro (Humalog*) 0 units SUBCUT ACHS [facility]; Protocol Magnesium Oxide (Magox 400 Tab*) 400 mg PO BID [facility] Metoprolol Succinate (Toprol Xl Tab*) 50 mg PO 0900,2100 [facility] Vital Signs: Temp Pulse Resp BP Pulse Ox 98.1 F 102 20 133/61 98 04/24/19 15:34 04/24/19 15:34 04/24/19 15:34 04/24/19 15:34 04/24/19 15:34 Oxygen Devices in Use Now: None Result Diagrams: 04/24/19 05:50 04/24/19 05:49 Assess/Plan/Problems-Billing Assessment: Ms. Bailey is a 63 yo F with a PMH of diabetes and depression who was admitted with afib RVR now s/p cardioversion. - Patient Problems (1) Afib Comment: - S/P succcessful cardioversion - CHADS Vasc 4, eliquis 5mg po BID - Magnesium and potassium repleted - Electrolytes low related to PPI - Metoprolol started - Will follow up with [facility] outpatient (2) Hyperlipidemia Comment: - Start lipitor (3) Depression Comment: - Continue duloxetine (4) GERD (gastroesophageal reflux disease) Comment: - Switch from PPI to H2 carley given electrolyte abnormalities (5) Diabetes Comment: - HgbA1c 10, on metformin only outpatient - Needs close follow up with Dr. Day (6) DVT prophylaxis Comment: (7) Full code status Comment:
[2019-04-24] MEDS ORDERED: Metoprolol Succinate XL TAB* 50 MG PO SCH (21:00)
--- NOTE | 2019-04-25 12:32 | DS ---
CC: Dr. Day; Dr. Dey * [facility] MEDICINE DISCHARGE SUMMARY: DATE OF ADMISSION: 04/23/19 DATE OF DISCHARGE: 04/24/19 PRIMARY CARE PHYSICIAN: Dr. Day. CITY WELLNESS COORDINATOR: Dr. Dey. ATTENDING PHYSICIAN: Dr. Hina Kim * (dictation provided by Andree Munguia NP ). PRIMARY DIAGNOSIS: Rapid atrial fibrillation status post successful cardioversion. SECONDARY DIAGNOSES: 1. Uncontrolled type 2 diabetes. 2. Hypertension. 3. Depression. PAST SURGICAL HISTORY: 1. Appendectomy. 2. Cholecystectomy. 3. Breast reduction. 4. . MEDICATIONS AT THE TIME OF DISCHARGE: 1. Metformin 1000 mg p.o. b.i.d. 2. Lisinopril 20 mg p.o. daily. 3. Duloxetine DR 90 mg p.o. daily. 4. Clonazepam 1.5 mg p.o. t.i.d. p.r.n. 5. Potassium chloride ER 10 mEq p.o. daily. 6. Metoprolol succinate 50 mg p.o. b.i.d. 7. Magnesium oxide 400 mg p.o. b.i.d. 8. Famotidine 20 mg p.o. b.i.d. 9. Atorvastatin 40 mg p.o. daily. 10. Apixaban 5 mg p.o. b.i.d. HOSPITAL COURSE: Ms. Bailey is a 63-year-old female, who presented to the emergency room on 04/23/19 with concerns for tachycardia. Please see the dictated H and P from Denae Madrigal NP, for complete details. In brief, the patient reported that over the weekend prior to admission, she had been walking in [facility], when she suddenly felt back pain, bilateral leg pain and severely fatigued. She called her primary care physician on Saturday and went in for an appointment on . She was noted to be tachycardic and therefore was sent to the emergency room. The patient did confirm at that point that she had noticed some episodes of her heart racing prior to admission. In the emergency room, she had an EKG which revealed atrial flutter at a heart rate of 157. The patient was given 2 rounds of adenosine, but there was no lasting effect. She was then given diltiazem. Call was placed to Dr. Dey when diltiazem was not successful in reducing her heart rate, but did cause her to be hypotensive and therefore digoxin bolus was started. Ms. Bailey was seen in consultation by Dr. Dey from Cardiology. He recommended a cardioversion, which was accomplished on 04/24/19. The patient also had repletion of electrolytes as her potassium was 3.0 and magnesium 1.1. By the day of discharge, her potassium was 3.1 and magnesium was 1.6. Dr. Dey and the hospitalist team have recommended multiple medication changes for Ms. Bailey. She will be discharged to home on Eliquis b.i.d. for stroke prevention in the setting of new onset atrial fibrillation. She is now newly on metoprolol, which will be added to her lisinopril both for blood pressure control as well as metoprolol will give heart rate control. We have switched her from a proton pump inhibitor to an H2 carley as this is our suspicion that this is what caused her low electrolytes and may have triggered the atrial fibrillation in the first place. She will have potassium and magnesium supplementation at home. We have started atorvastatin for primary prevention of coronary artery disease in the setting of diabetes. It has also been noted while here the patient's blood sugar was uncontrolled, hemoglobin A1c is 10.5. Here in the hospital, her blood sugar has been running approximately 200 to 230. She is on metformin only. As she does have close followup outpatient with her primary care physician, I am deferring medication changes for her diabetes to her primary care physician, Dr. Day. The patient has been instructed strongly to reduce sugar intake and to follow up with Dr. Day to ensure adequate blood glucose control in addition to atrial fibrillation management. Ms. Bailey is medically stable for discharge to home. She will be following up with Dr. Day and Dr. Dey. DISPOSITION: Home. DIET: Low carb, low salt, low fat. ACTIVITY: As tolerated. FOLLOWUP PLANS: 1. Please follow up with Dr. Day. The patient has been instructed to call on Saturday a.m. for an appointment. 2. Please follow up with Dr. Dey. Again, the patient has been instructed to call Saturday a.m. for an appointment. TIME SPENT: Approximately 60 minutes was spent in the discharge of this patient , more than half the time was spent with the patient at the bedside reviewing the events leading up to this hospitalization, performing the physical examination, and reviewing my plan of care. ANDREE MUNGUIA NP [id number]/CPS #: [id number] [email or web address]
== END 2019-04-24 19:00 | disposition home or self-care (01) ==
LOC: ED 10:47 → MEDTELE 15:03
PROVIDERS: ADMIT Internal Medicine; ATTEND Hospitalist
DX: I48.91 Unspecified atrial fibrillation (principal); E87.6 Hypokalemia; E11.65 Type 2 diabetes mellitus with hyperglycemia; R74.0 Nonspecific elevation of levels of transaminase and lactic acid dehydrogenase [LDH]; I10 Essential (primary) hypertension; E78.5 Hyperlipidemia, unspecified; K21.9 Gastro-esophageal reflux disease without esophagitis; I44.4 Left anterior fascicular block; E83.42 Hypomagnesemia; F32.9 Major depressive disorder, single episode, unspecified; Z79.01 Long term (current) use of anticoagulants; Z79.84 Long term (current) use of oral hypoglycemic drugs; Z79.899 Other long term (current) drug therapy; Z87.891 Personal history of nicotine dependence; E66.9 Obesity, unspecified
CPT/HCPCS: 36415; 71045; 80053; 80061; 82947; 83036; 83605; 83735; 83880; 84439; 84443; 84484; 85025; 85379; 92960; 93005; 93312; 93325; 96365; 96366; 96375; 96376; 99156; 99157; 99284; A9270-GY; G0378; J0153; J1160; J2250; J2310; J3010; J3475; J3480; J3490

== ENCOUNTER 2019-07-26 13:06 | Emergency (ER) | payer MEDICARE ==
--- NOTE | 2019-07-26 13:39 | ED ---
HPI Chest Pain - HPI Summary HPI Summary: This pt is a 64 Y/O F presenting to [facility] accompanied by her daughter, with a CC of palpitations that started around 0800 this morning when she woke up. She states that she has a heaviness in her left anterior chest but went about her day as usual until the symptoms did not disperse. She also states that she has become SOB throughout the day. She denies any hemoptysis, diaphoresis, fevers, chills, N/V, dizziness, and headaches. She states that she has an extensive history of cardiac risk factors such as HTN, hypercholestemia, AFIB, DVTs, and diabetes. She has no aggravating or alleviating symptoms. - History of Current Complaint Chief Complaint: EDDysrhythmPalp Time Seen by Provider: 07/26/19 13:27 Hx Obtained From: Patient Onset/Duration: Started Hours Ago - when she woke up this mormning, Still Present Time of Onset: 08:00 Timing: Constant Current Severity: None Pain Intensity: 0 Pain Scale Used: 0-10 Numeric Chest Pain Location: Left Anterior Character: Heaviness Aggravating Factor(s): Nothing Alleviating Factor(s): Nothing Associated Signs and Symptoms: Positive: Shortness of Breath, Diaphoresis. Negative: Chest Pain, Headaches, Dizziness, Fever, Chills, Nausea, Hemoptysis, Abdominal Pain, Vomiting - Additional Pertinent History Primary Care Physician: [id number] - Allergy/Home Medications Allergies/Adverse Reactions: Allergies Allergy/AdvReac Type Severity Reaction Status Date / Time No Known Allergies Allergy Verified 07/26/19 13:26 Home Medications: Home Medications Aspirin 81 mg PO DAILY 07/26/19 [History Confirmed 07/26/19] Dulaglutide (NF) [Trulicity (NF)] 1.5 mg SUBCUT WEEKLY 07/26/19 [History Confirmed 07/26/19] Magnesium Oxide TAB* [MagOx 400 TAB*] 400 mg PO TID 07/26/19 [History Confirmed 07/26/19] Omeprazole 20 mg PO DAILY 07/26/19 [History Confirmed 07/26/19] PMH/Surg Hx/FS Hx/Imm Hx Previously Healthy: Yes Endocrine/Hematology History: Reports: Hx Diabetes - II Denies: Hx Thyroid Disease Cardiovascular History: Reports: Hx Hypertension Respiratory History: Denies: Hx Asthma, Hx Chronic Obstructive Pulmonary Disease (COPD) GI History: Reports: Hx Ulcer - gerd Musculoskeletal History: Denies: Hx Arthritis Sensory History: Reports: Hx Contacts or Glasses - readers Denies: Hx Hearing Aid Opthamlomology History: Reports: Hx Contacts or Glasses - readers Neurological History: Denies: Hx Headaches, Hx Seizures, Hx Transient Ischemic Attacks (TIA) Psychiatric History: Reports: Hx Depression - Surgical History Surgery Procedure, Year, and Place: breast reduction. yasmany. appe. tonsils/ adenoids. csection x2 Infectious Disease History: No Infectious Disease History: Denies: Hx Hepatitis, Hx Human Immunodeficiency Virus (HIV), History Other Infectious Disease, Traveled Outside the [place] in Last 30 Days - Family History Known Family History: Negative: Cardiac Disease, Hypertension, Diabetes - Social History Occupation: Employed Full-time Lives: With Family Alcohol Use: None Hx Substance Use: No Substance Use Type: Reports: None Hx Tobacco Use: No Smoking Status (MU): Never Smoked Tobacco Review of Systems Constitutional: Negative - dizziness Negative: Fever, Chills ENT: Negative - hemoptysis Positive: Palpitations, Chest Pain - heaviness Positive: Shortness Of Breath. Negative: Cough Negative: Abdominal Pain, Vomiting, Nausea Negative: Headache All Other Systems Reviewed And Are Negative: Yes Physical Exam - Summary Physical Exam Summary: Constitutional: Well-developed, Well-nourished, Alert. (-) Distressed Skin: Warm, Dry HENT: Normocephalic; Atraumatic Eyes: Conjunctiva normal Neck: Musculoskeletal ROM normal neck. (-) JVD, (-) Stridor, (-) Tracheal deviation Cardio: Rhythm regular, rate normal, Heart sounds normal; Intact distal pulses; The pedal pulses are 2+ and symmetric. Radial pulses are 2+ and symmetric. (-) Murmur Pulmonary/Chest wall: Effort normal. (-) Respiratory distress, (-) Wheezes, (-) Rales Abd: Soft, (-) tenderness, (-) Distension, (-) Guarding, (-) Rebound Musculoskeletal: (-) Edema Lymph: (-) Cervical adenopathy Neuro: Alert, Oriented x3 Psych: Mood and affect Normal Triage Information Reviewed: Yes Vital Signs On Initial Exam: Initial Vitals Temp Pulse Resp BP Pulse Ox 97.6 F 111 14 134/90 100 07/26/19 13:08 07/26/19 13:08 07/26/19 13:08 07/26/19 13:08 07/26/19 13:08 Vital Signs Reviewed: Yes Diagnostics - Vital Signs Vital Signs Temp Pulse Resp BP Pulse Ox 07/26/19 13:08 97.6 F 111 14 134/90 100 - Laboratory Result Diagrams: 07/26/19 13:30 07/26/19 13:30 Lab Statement: Any lab studies that have been ordered have been reviewed, and results considered in the medical decision making process. - Radiology CXR Radiology Interpretation Completed By: Radiologist Summary of Radiographic Findings: No radiographic evidence for acute cardiopulmonary abnormality on this. portable chest x-ray. ED physician has reviewed the report. - EKG 1309 Cardiac Rate: Tachycardia - 99 BPM EKG Rhythm: Sinus Tachycardia Summary of EKG Findings: EKG taken at 1309 shows a sinus tachycardia at 99 BPM with ventricular trigeminy. EKG was interpreted by Dr. Hernandez at 07/26/19 [id number]. 1533 Cardiac Rate: NL - 88 BPM EKG Comparison: No Significant Change - from initial EKG Summary of EKG Findings: EKG at 1533 shows ventricular trigeminy and a NSR at 88 BPM. No significant changes from initial EKG. Interpreted by Dr. Hansen at 1540 07/26/19. Chest Pain Course/Dx - Course Course Of Treatment: Patient is here for left-sided chest pain. Patient was in a normal sinus rhythm with no evidence of ischemia upon arrival. Patient had a negative troponin. Patient had negative d-dimer as well as low risk for PE. Patient had negative chest x-ray. Patient was offered inpatient admission but declined and wanted outpatient stress test. - Diagnoses Provider Diagnoses: Chest pain, SOB (shortness of breath) - Provider Notifications Discussed Care Of Patient With: Ky Dey Time Discussed With Above Provider: 16:34 Instructed by Provider To: Have Pt Call For Appt. Discharge ED - Sign-Out/Discharge Documenting (check all that apply): Patient Departure - discharge Patient Received Moderate/Deep Sedation with Procedure: No - Discharge Plan Condition: Stable Disposition: HOME Patient Education Materials: Chest Pain (ED), Shortness of Breath (ED) Referrals: Giselle Day MD [Primary Care Provider] - 2 Days [facility] [Outside] - 2 Days Ky Dey DO [Medical Doctor] - 2 Days Additional Instructions: PLEASE RETURN TO THE EMERGENCY DEPARTMENT FOR ANY NEW OR WORSENING SYMPTOMS. Please follow up with Dr. Dey, malt house kiln operator, to schedule a stress test. His office will call you. If his office does not call you contact either your primary care physician or the [facility] to schedule a stress test. - Billing Disposition and Condition Condition: STABLE Disposition: Home - Attestation Statements Document Initiated by hCaparro: Yes Documenting Scribe: Jose Raul Vidal Provider For Whom Chaparro is Documenting (Include Credential): Dann Hansen MD Scribe Attestation: Jose Raul Stevens, scribed for Dann Hansen MD on 07/26/19 at 213. Scribe Documentation Reviewed: Yes Provider Attestation: The documentation as recorded by the Jose Raul riggins accurately reflects the service I personally performed and the decisions made by me, Dann Hansen MD Status of Scribe Document: Viewed
[2019-07-26 13:40] LABS: ABS Eosinophils 0.2 10^3/ul (0-0.6); ABS Lymphocytes 1.7 10^3/ul (1.0-4.8); ABS Monocytes 0.4 10^3/ul (0-0.8); ABS Neutrophils 4.5 10^3/ul (1.5-7.7); Eosinophil % 2.6 %; Hematocrit 40 % (35-47); Hemoglobin 13.8 g/dL (12.0-16.0); Mean Corpuscular HGB Conc 35 g/dL (31-36); Mean Corpuscular Hemoglobin 33 pg (27-31); Mean Corpuscular Volume 94 fL (80-97); Mean Platelet Volume 8.8 fL (7.4-10.4); Nucleated Red Blood Cells % 0.1; Platelet Count 218 10^3/uL (150-450); Red Blood Count 4.26 10^6 /uL (3.70-4.87); Red Cell Distribution Width 12 % (10-15); White Blood Count 6.9 10^3/uL (3.5-10.8)
[2019-07-26 13:45] LABS: INR 1.09 (0.82-1.09)
[2019-07-26] MEDS ORDERED: Nitroglycerin TAB 0.4 MG* 0.4 MG TAB SL ONE (13:54)
[2019-07-26] MEDS ORDERED: Aspirin 81 mg CHEW TAB* 81 MG TAB.CHEW PO ONE (13:54)
--- OUTSIDE RECORDS SUMMARY | 2019-07-26 14:00 | XMS REPORT | Summary of Care ---
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 Encounter Details Date Type Department Care Team Description 07/23/2019 Office Visit [facility] Giselle Day MD Type 2 diabetes mellitus without complication, without long-term current use of insulin ([facility]) (Primary Dx); Medicine [address] [facility] Need for immunization against influenza; [address] [place] [address] Anxiety; [place] [address] PAF (paroxysmal atrial fibrillation) ([facility]); [phone] Essential hypertension; (Fax) Hypomagnesemia; Gastroesophageal reflux disease, esophagitis presence not specified; Sebaceous cyst; MALLIKA (obstructive sleep apnea) Allergies Active Allergy Reactions Severity Noted Date Comments Statins Unknown Reaction 11/08/2015 documented as of this encounter (statuses as of 07/23/2019) Medications Medication Sig Dispensed Refills Start Date End Date Status Lancets Does not apply 1 Each by Does not 100 Each 3 04/09/2016 Active Misc apply route DAILY. Dx E11.9 Accuchek softclix atorvastatin (LIPITOR) Take 1 Tab by 90 Tab 3 04/29/2019 Active 40 MG Oral mouth DAILY. TabIndications: Type 2 diabetes mellitus without complication, without long-term current use of insulin ([facility]) metoprolol succinate Take 1 Tab by 60 Tab 5 04/29/2019 Active (TOPROL XL) 50 MG Oral mouth TWICE DAILY. TABLET SR 24 HRIndications: PAF (paroxysmal atrial fibrillation) ([facility]) metFORMIN (GLUCOPHAGE Take 2 Tabs by 120 Tab 5 04/29/2019 Active XR) 500 MG Oral TABLET mouth TWICE DAILY. SR 24 HRIndications: Type 2 diabetes mellitus without complication, without long-term current use of insulin ([facility]) lisinopril (PRINIVIL, Take 1 Tab by 90 Tab 3 04/29/2019 Active ZESTRIL) 20 MG Oral mouth DAILY. TabIndications: Essential hypertension Glucose Blood In Vitro 1 Strip by In 100 Strip 3 04/29/2019 Active StripIndications: Type Vitro route DAILY. 2 diabetes mellitus Dx E11.9 Freestyle without complication, Lite without long-term current use of insulin ([facility]) ALPRAZolam (XANAX) Take 1 Tab by 20 Tab 0 04/29/2019 Active 0.25 MG Oral mouth EVERY SIX TabIndications: HOURS NEEDED Hypothyroidism, (anxiety). Max unspecified type Daily Amount: 1 mg. potassium chloride Take 1 Tab by 30 Tab 3 05/25/2019 Active (KLOR-CON 10) 10 MEQ mouth DAILY. Oral Tab CR magnesium oxide Take 1 Tab by 60 Tab 3 05/25/2019 Active (MAG-OX) 400 MG Oral mouth TWICE DAILY. Tab Additional information Patient taking differently: 400 mg Oral TID, Reported on 07/23/2019 4:36 PM Dulaglutide (TRULICITY) 1.5 Inject 1 Appl 6 mL 3 06/26/2019 Active MG/0.5ML Subcutaneous beneath the Solution skin EVERY 7 Pen-injectorIndications: Type DAYS. 2 diabetes mellitus without Disregard 1/2 complication, without dose refill long-term current use of insulin ([facility]) esomeprazole magnesium Take 40 mg by 30 Cap 0 07/08/2019 Active (NEXIUM) 40 MG Oral CAPSULE mouth DAILY. DELAYED RELEASE Aspirin 81 MG Oral Tab EC Take by mouth 0 Active DAILY. clonazePAM (KLONOPIN) 1 MG Take 1 Tab by 90 Tab 0 07/23/2019 Active Oral TabIndications: Anxiety mouth THREE TIMES DAILY NEEDED (anxiety). Max Daily Amount: 3 mg. Omeprazole delayed rel cap 20 Take 20 mg by 90 Cap 1 07/23/2019 Active MG Oral CAPSULE DELAYED mouth DAILY. RELEASEIndications: Gastroesophageal reflux disease, esophagitis presence not specified clonazePAM (KLONOPIN) 1 MG Take 1 Tab by 90 Tab 0 02/07/201707/23 Discontinued Oral TabIndications: Anxiety mouth (Reorder) TIMES DAILY NEEDED (anxiety). Max Daily Amount: 3 mg. apixaban (ELIQUIS) 5 MG Oral Take 1 Tab by 180 Tab 3 04/29/201907/23 Discontinued TabIndications: PAF mouth TWICE (paroxysmal atrial DAILY. fibrillation) (HCC) famotidine (PEPCID) 20 MG Take 1 Tab by 180 Tab 3 04/29/201907/23 Discontinued Oral Tab mouth TWICE 2019 DAILY. Hospital, Clinic, or Other Ordered Dose Route Frequency Start Date End Date Status Facility Administered Medication Dulaglutide 1.5 MG/0.5ML 1 Appl SC NOW 05/27/2019 Active SOPNIndications: Type 2 diabetes mellitus without complication, without long-term current use of insulin (HCC) documented as of this encounter (statuses as of 07/23/2019) Active Problems Problem Noted Date GERD (gastroesophageal reflux disease) 07/23/2019 MALLIKA (obstructive sleep apnea) 07/23/2019 Overview: Severe positionsal - Does not want to try mask - HTN (hypertension) 10/28/2014 Overview: Care plan done 02/15/2016 DM (diabetes mellitus) 10/28/2014 Overview: Care plan done 12/02 Depression Overview: Has tried effexor ( wore off ) / has tried SSRIs - Imipramine in the documented as of this encounter (statuses as of 07/23/2019) Immunizations Name Administration Dates Next Due Influenza Vaccine High Dose 07/23/2019 documented as of this encounter Social History Tobacco Use Types Packs/Day Years Used Date Former Smoker Quit: 11/18/1997 Smokeless Tobacco: Never Used Alcohol Use Drinks/Week oz/Week Comments No 0 Standard drinks or equivalent 0.0 Sex Assigned at Date Recorded Not on file Job Start Date Occupation Industry Not on file Not on file Not on file Travel History Travel Start Travel End No recent travel history available. documented as of this encounter Last Filed Vital Signs Vital Sign Reading Time Taken Comments Blood Pressure 119/60 07/23/2019 4:30 PM EDT Pulse 87 07/23/2019 4:30 PM EDT Temperature - - Respiratory Rate - - Oxygen Saturation 97% 07/23/2019 4:30 PM EDT Inhaled Oxygen Concentration - - Weight 106.6 kg (235 lb) 07/23/2019 4:30 PM EDT Height 175.3 cm (5' 9") 07/23/2019 4:30 PM EDT Body Mass Index 34.7 07/23/2019 4:30 PM EDT documented in this encounter Patient Instructions Patient InstructionsGiselle Day MD - 07/23/2019 4:00 PM EDTDrugs to decrease the acid in your stomach and treat reflux Weakest drug for reflux: TuMS/ maalox/ mylanta/ amphogel etc. Middle strenght medications ( otc and by precsription) (H2 blockers) Tagamet/ pepcid/ axid / zantac (ranitidine) High strength medications (otc and by prescription) PPI Prilosec OTC ( ompetrazole) /Protonix (pantaprazole ) /Prevacid // Aciphex/ Nexium documented in this encounter Progress Notes Giselle Day MD - 07/23/2019 4:00 PM EDT NAME:Eryn Bailey [birth year] ENC Date: 07/23/2019 CC: Chief Complaint Patient presents with Injection flu Results sleep study Medication Check discuss Lisinopril, Toprol and Magnesium Derm Problem lump right side of neck and hair loss. Eryn Bailey is a 64-y.o. female 1.. Taking 3 magnesium - from receiving team member ( thought secondary to PPI) 2. Requests - Refill of klonopin which takes prn basis -- 3. Taking trulicity- and doing well - Blood sugar running 140 4. 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 Max Daily Amount: 1 mg. Aspirin 81 MG Oral Tab EC Take by mouth DAILY. atorvastatin (LIPITOR) 40 MG Oral Tab Take 1 Tab by mouth DAILY. clonazePAM (KLONOPIN) 1 MG Oral Tab Take 1 Tab by mouth THREE TIMES DAILY NEEDED (anxiety). Max Daily Amount: 3 mg. Dulaglutide (TRULICITY) 1.5 MG/0.5ML Subcutaneous Solution Pen-injector Inject 1 Appl beneaththe skin EVERY 7 DAYS. Disregard 1/2 dose refill esomeprazole magnesium (NEXIUM) 40 MG Oral CAPSULE DELAYED RELEASE Take 40 mg by mouth DAILY. Glucose Blood In Vitro Strip 1 Strip by In Vitro route DAILY. Dx E11.9 Freestyle Lite Lancets Does not apply Misc 1 Each by Does not apply route DAILY. Dx E11.9 Accuchek softclix lisinopril (PRINIVIL, ZESTRIL) 20 MG Oral Tab Take 1 Tab by mouth DAILY. magnesium oxide (MAG-OX) 400 MG Oral Tab Take 1 Tab by mouth TWICE DAILY. (Patient taking differently: Take 400 mg by mouth THREE TIMES DAILY.) metFORMIN (GLUCOPHAGE XR) 500 MG Oral TABLET SR 24 HR Take 2 Tabs by mouth TWICE DAILY. metoprolol succinate (TOPROL XL) 50 MG Oral TABLET SR 24 HR Take 1 Tab by mouth TWICE DAILY. Omeprazole delayed rel cap 20 MG Oral CAPSULE DELAYED RELEASE Take 20 mg by mouth DAILY. potassium chloride (KLOR-CON 10) 10 MEQ Oral Tab CR Take 1 Tab by mouth DAILY. Current Facility-Administered Medications Medication Dulaglutide 1.5 MG/0.5ML SOPN Patient Active Problem List Diagnosis Date Noted GERD (gastroesophageal reflux disease) 07/23/2019 MALLIKA (obstructive sleep apnea) 07/23/2019 Severe positionsal - Does not want to try mask - HTN (hypertension) 10/28/2014 Care plan done 02/15/2016 DM (diabetes mellitus) (HCC) 10/28/2014 Care plan done 12/02 Depression Has tried effexor ( wore off ) / has tried SSRIs - Imipramine in the Family History Adopted: Yes No cardiopulmonary symptoms No upper or lower GI complaints No urinary tract symptoms. No bruising/ bleeding. No neurological complaints . No insomnia.+ . Social History Tobacco Use Smoking status: Former Smoker Last attempt to quit: 11/18/1997 Years since quittin.6 Smokeless tobacco: Never Used Substance Use Topics Alcohol use: No Alcohol/week: 0.0 standard drinks Drug use: No OBJECTIVE: BP 119/60 | Pulse 87 | Ht 5' 9" (1.753 m) | Wt 235 lb (106.6 kg) | SpO2 97% | BMI 34.70 kg/m . Heent neg Neck no JVD, thyromegaly or bruit Lungs Clear CV rrr Abd soft, nontender, no organomegaly Ext no edema; no lesions; pulses intact Neuro: intellect intact ; motor including gait unremarkable A/P ICD-9-CM ICD-10-CM 1. Type 2 diabetes mellitus without complication, without long-term current use of insulin ([facility]) 250.00 E11.9 2. Need for immunization against influenza V04.81 Z23 LA FLU VACCINE HIGH DOSE 3. Anxiety 300.00 F41.9 clonazePAM (KLONOPIN) 1 MG Oral Tab 4. PAF (paroxysmal atrial fibrillation) ([facility]) 427.31 I48.0 5. Essential hypertension 401.9 I10 6. Hypomagnesemia 275.2 E83.42 7. Gastroesophageal reflux disease, esophagitis presence not specified 530.81 K21.9 Omeprazole delayed rel cap 20 MG Oral CAPSULE DELAYED RELEASE 8. Sebaceous cyst 706.2 L72.3 REFER TO DERMATOLOGY 9. MALLIKA (obstructive sleep apnea) 327.23 G47.33 Patient Instructions Drugs to decrease the acid in your stomach and treat reflux Weakest drug for reflux: TuMS/ maalox/ mylanta/ amphogel etc. Middle strenght medications ( otc and by precsription) (H2 blockers) Tagamet/ pepcid/ axid / zantac (ranitidine) High strength medications (otc and by prescription) PPI Prilosec OTC ( ompetrazole) /Protonix (pantaprazole ) /Prevacid // Aciphex/ Nexium AUTHOR: Giselle Day MD 17:29 07/23/2019 Giselle epstein MD - 07/23/2019 4:00 PM EDT NAME:Eryn Bailey 1955: 1955 ENC Date: 07/23/2019 CC: Chief Complaint Patient presents with Injection flu Results sleep study Medication Check discuss Lisinopril, Toprol and Magnesium Eryn Bailey is a 64-y.o. female Hospitalized with afib [facility] - Followed by Dr Em Poorly controlled diabetes 0- started on trulicity Check blood sugar - Eye and foot care - Current Outpatient Medications Medication Sig ALPRAZolam (XANAX) 0.25 MG Oral Tab Take 1 Tab by mouth EVERY SIX HOURS NEEDED (anxiety). Max Daily Amount: 1 mg. Aspirin 81 MG Oral Tab EC Take by mouth DAILY. atorvastatin (LIPITOR) 40 MG Oral Tab Take 1 Tab by mouth DAILY. clonazePAM (KLONOPIN) 1 MG Oral Tab Take 1 Tab by mouth THREE TIMES DAILY NEEDED (anxiety). Max Daily Amount: 3 mg. Dulaglutide (TRULICITY) 1.5 MG/0.5ML Subcutaneous Solution Pen-injector Inject 1 Appl beneaththe skin EVERY 7 DAYS. Disregard 1/2 dose refill esomeprazole magnesium (NEXIUM) 40 MG Oral CAPSULE DELAYED RELEASE Take 40 mg by mouth DAILY. Glucose Blood In Vitro Strip 1 Strip by In Vitro route DAILY. Dx E11.9 Freestyle Lite Lancets Does not apply Misc 1 Each by Does not apply route DAILY. Dx E11.9 Accuchek softclix lisinopril (PRINIVIL, ZESTRIL) 20 MG Oral Tab Take 1 Tab by mouth DAILY. magnesium oxide (MAG-OX) 400 MG Oral Tab Take 1 Tab by mouth TWICE DAILY. (Patient taking differently: Take 400 mg by mouth THREE TIMES DAILY.) metFORMIN (GLUCOPHAGE XR) 500 MG Oral TABLET SR 24 HR Take 2 Tabs by mouth TWICE DAILY. metoprolol succinate (TOPROL XL) 50 MG Oral TABLET SR 24 HR Take 1 Tab by mouth TWICE DAILY. potassium chloride (KLOR-CON 10) 10 MEQ Oral Tab CR Take 1 Tab by mouth DAILY. Current Facility-Administered Medications Medication Dulaglutide 1.5 MG/0.5ML SOPN Patient Active Problem List Diagnosis Date Noted GERD (gastroesophageal reflux disease) 07/23/2019 HTN (hypertension) 10/28/2014 Care plan done 02/15/2016 DM (diabetes mellitus) (HCC) 10/28/2014 Care plan done 12/02 Depression Has tried effexor ( wore off ) / has tried SSRIs - Imipramine in the Family History Adopted: Yes No cardiopulmonary symptoms No upper or lower GI complaints No urinary tract symptoms. No bruising/ bleeding. No neurological complaints . No insomnia.+ . Social History Tobacco Use Smoking status: Former Smoker Last attempt to quit: 11/18/1997 Years since quittin.6 Smokeless tobacco: Never Used Substance Use Topics Alcohol use: No Alcohol/week: 0.0 standard drinks Drug use: No OBJECTIVE: BP 119/60 | Pulse 87 | Ht 5' 9" (1.753 m) | Wt 235 lb (106.6 kg) | SpO2 97% | BMI 34.70 kg/m . Heent neg Neck no JVD, thyromegaly or bruit Lungs Clear CV rrr Abd soft, nontender, no organomegaly Ext no edema; no lesions; pulses intact Neuro: intellect intact ; motor including gait unremarkable A/P ICD-9-CM ICD-10-CM 1. Need for immunization against influenza V04.81 Z23 LA FLU VACCINE HIGH DOSE 2. Anxiety 300.00 F41.9 There are no Patient Instructions on file for this visit. AUTHOR: Giselle Day MD 16:42 07/23/2019 documented in this encounter Plan of Treatment Date Type Specialty Care Team Description 09/28/2019 Lab Internal Medicine 10/05/2019 Office Visit Internal Medicine Giselle Day MD [address] [place] [address] [phone] Name Type Priority Associated Diagnoses Order Schedule REFER TO DERMATOLOGY Referral Routine Sebaceous cyst Expected: 07/23/2019, Expires: 07/23/2020 Health Maintenance Due Date Last Done Comments MEDICARE ANNUAL WELLNESS 1955 VISIT FOOT EXAM 1971 MAMMOGRAM (SCREENING) 1993 COLONOSCOPY SCREENING 2003 ZOSTER IMMUNIZATION SERIES 2003 (1 of 2) OSTEOPOROSIS SCREENING 2018 PNEUMOCOCCAL 65+YRS (1 of 2 2018 - PCV13) HEMOGLOBIN A1C 08/20/2019 05/20/2019, 04/24/2019, 09/08/2018, Additional history exists DEPRESSION SCREENING 04/23/2020 04/23/2019, 04/23/2019 LIPID DISORDER SCREENING 04/29/2020 04/29/2019, 09/08/2018, 02/07/2017, Additional history exists FALL RISK ASSESSMENT 05/27/2020 05/27/2019, 05/27/2019 Diabetic Eye Exam 03/24/2021 03/24/2019 HPV IMMUNIZATION SERIES Aged Out No longer eligible based on patient's age to complete this topic MENINGOCOCCAL VACCINE IMM Aged Out No longer eligible based on patient's age to complete this topic documented as of this encounter Goals Goal Patient Goal Associated Recent Patient-Stated? Author Type Problems Progress Blood Pressure Blood Pressure HTN 119/60 No Crepet, < 140/90 (hypertension) (07/23/2019 MD Giselle 4:30 PM EDT) Note: Hypertension Care Plan Based on the patient's clinical history and according to JNC 8 guidelines target blood pressure goal is less than 140/90. Based on the patient's last blood pressure of BP: (!) 156/102 mmHg the patient is at above goal. As your provider, it is important that I advise you regarding: your current medications and help you with any challenges you may face taking your medications as directed (ex. instructions, cost, side effects, and interactions). Important lifestyle changes: exercise, weight reduction, diet, dietary sodium reduction and medication compliance your clinical goals and how you can achieve success: weight reduction, exercise plan and diet improvements medication management: N/A diet only patient education/self-management tools provided: Current self-management tools adequate To successfully manage my Hypertension I will: monitor my blood pressure daily, understanding that my goal is less than 140/ 90 per my healthcare provider's recommendation. I will schedule an appointment with my provider if consistent abnormal readings greater than 160/100. take medications every day as prescribed by my healthcare provider and if unable to take them I will discuss with my provider. monitor for symptoms of chest pain, chest tightness/pressure, irregular heartbeat, persistent dizziness, radiating arm pain, and neck or jaw pain. If any of these symptoms are noticed I will seek medical attention immediately by calling 911 exercise/walk 45 minutes 3 day(s) per week. If I experience chest pain, chest tightness, or shortness of breath, I will seek medical attention immediately. follow a diet rich in fruits, vegetables, and low-fat dairy products with reduced content of saturated & total fat. I will reduce my sodium intake daily. An example is the DASH diet. To obtain more information please refer to the DASH Eating Plan listed in Educational Resources. record my blood pressure results. Nidia is safe and secure way for you to do this in your medical record online. try to obtain an ideal body weight. My recent weight was Weight: 250 lb ( 113.399 kg). My weight loss goal for my next office visit is 5 lbs . limit alcohol consumption. For men two drinks per day and women one drink per day. if currently smoking, will discuss how to quit smoking with my healthcare provider and work towards quitting. Educational Resources: National Heart, Lung, & Blood [place] http://nhlbi.nih.gov/hbp/index.html The DASH Diet Eating Plan http://www.nhlbi.nih.gov/health/health-topics/ topics/dash/ Academy of Nutrition & DIetetics http://eatright.org National Smoking Cessation Site http://smokefree.gov Blood Pressure < Blood Pressure 119/60 (07/23/2019 No Estefani Cisneros PA -C 140/90 4:30 PM EDT) Note: This is an individualized treatment (blood pressure) goal for Eryn Bailey: Displayed above (on the left) is your goal for blood pressure control. Your most recent blood pressure is also shown above, on the right. You should try to achieve blood pressures that are lower than your goal listed above (on the left). Depression screen Depression 15 (04/23/2019 9:20 AM No Estefani Cisneros PA-C (PHQ-9) total score < 5 EDT) Note: This is an individualized treatment (depression) goal for Eryn Bailey: Displayed above is your goal for a depression screening (PHQ-9) score that would indicate good control of your depression. Diabetes < 7.0 Diabetes DM (diabetes 9.9 (05/20/2019 10:52 No Giselle Day MD mellitus) AM EDT) Note: Diabetes Care Plan According to current 2014 ADA guidelines the patient A1C goal is less than 7. The patient's last A1C was Lab Results Lab Results Value Date/Time GLYCO 6.5 10/28/2014 1151 The patient is:at goal . As your provider, it is important that I advise you regarding: your current medications and help you with any challenges you may face taking your medications as directed (ex. instructions, cost, side effects, and interactions). lifestyle changes:exercise, diet and glucose monitoring your clinical goals and how you can achieve success:weight reduction, exercise plan, diet management and glucose monitoring medication management: adjusted medications as appropriate patient education/self-management tools provided: Current self-management tools adequate To successfully manage my Diabetes I will: have lab work every six months if my previous A1c was 7 or less. If my results were greater than 7, I will have lab work every three months. My goal is to control my diabetes by keeping A1c below 7.0 take medications every day as prescribed by my healthcare provider and if unable to take them I will discuss with my provider. exercise/walk 45 minutes 4 day(s) per week. If I experience chest pain, chest tightness, or shortness of breath, I will seek medical attention immediately. check feet daily. If sores or irritation are noticed, will seek medical attention. follow a low carbohydrate and low fat diet. My goal is an LDL (bad cholesterol) number less than 100 when I have my routine lab work. check blood sugar as instructed and will call my healthcare provider if the results are consistently below 70 or above 300. I will monitor for symptoms of low blood sugar (feeling faint, dizzy, lig htheaded, jittery, sweaty, or hungry), if symptoms are noticed, I will eat or drink something (glucose tabs, orange juice, candy) to help raise sugar. record my blood sugar results (including dextrose sticks). Nidia is safe and secure way for you to do this in your medical record online. try to obtain an ideal body weight. My recent weight was . My weight loss goal for my next office visit is 10 lbs . to prevent kidney problems common to people with diabetes I will complete a yearly Microalbumin to check for protein in urine. I will talk with my healthcare provider about medications to prevent diabetic renal disease. to prevent diabetic retinopathy I will see an eye doctor yearly. A yearly dilated eye exam helps prevent blindness. if currently smoking, will discuss how to quit smoking with my healthcare provider and work towards quitting. Glycohemoglobin A1c < 7.0 Diabetes 9.9 (05/20/2019 10:52 AM No Estefani Cisneros PA-C EDT) Note: This is an individualized treatment (diabetes control, HgbA1C) goal for Eryn Bailey: Displayed above is your progress towards your HgbA1C goal. Your goal is shown above (on the left); your most recent HgbA1C is shown on the right. Note that lower numbers are better. Weight loss vs. 18 mo Lifestyle 17 (07/23/2019 4:30 PM No Estefani Cisneros PA-C max (lbs) >= 10 EDT) Note: This is an individualized lifestyle goal for Eryn Bailey: Your body mass index (BMI) is more than 30. You should lose weight. A reasonable starting goal is to lose 10 pounds. Displayed above is how many pounds you have lost thus far towards your 10 pound weight loss goal. Keep a regular sleep schedule Lifestyle No Estefani Cisneros PA-C Note: This is an individualized lifestyle goal for Eryn Bailey: Please maintain a regular sleep schedule. This may help with some symptoms of depression. Keep immunizations current Lifestyle No Estefani Cisneros PA-C Note: This is an individualized lifestyle goal for Eryn Bailey: Please be sure to keep up-to-date on recommended immunizations. For example, this would include a yearly influenza vaccine. Immunization status can be seen by looking at the Health Maintenance sections of your [facility], Plan of Care, and any After Visit Summaries. Take all prescribed medications as Self-management No Estefani Cisneros PA-C directed Note: This is an individualized self-management goal for Eryn Bailey: Please take all prescribed medications as directed. 1. Do not skip doses. If you cannot afford your medications, talk with your doctor. 2. Use a pill reminder system such as a pill box if needed. Your pharmacist can help you with this. 3. Contact your Pharmacy 5 days before your medication runs out. If you cannot take your medications for any reasons, talk with your doctor. 4. Please bring all of your medication bottles and inhalers (or a list of all your medications/inhalers) with you to every visit. Potential barriers to meeting all of your care plan goals will continue to be addressed on an ongoing basis. documented as of this encounter Results Not on filedocumented in this encounter Visit Diagnoses Diagnosis Type 2 diabetes mellitus without complication, without long-term current use of insulin (HCC) - Primary Need for immunization against influenza Need for prophylactic vaccination and inoculation against influenza Anxiety Anxiety state, unspecified PAF (paroxysmal atrial fibrillation) (HCC) Atrial fibrillation Essential hypertension Unspecified essential hypertension Hypomagnesemia Disorders of magnesium metabolism Gastroesophageal reflux disease, esophagitis presence not specified Sebaceous cyst MALLIKA (obstructive sleep apnea) Obstructive sleep apnea (adult) (pediatric) documented in this encounter Guarantor Name Account Type Relation to Date of Phone Billing Patient Address Eryn Bailey Personal/Family 1955 [address] [place] [id number] documented as of this encounter
--- OUTSIDE RECORDS SUMMARY | 2019-07-26 14:00 | XMS REPORT | Continuity of Care Document ---
:1955 External Reference #:[id number] Author Name Ky Dey DO FACC (transmitted by agent of provider Jane Simmons) Address [address] [place] [address] Care Team Providers Name Role Phone Giselle Day MD - Internal Medicine Care Team Information Supervisor Telephone Clerks Problems Description No Information Available Social History Type Date Description Comments Sex Unknown Tobacco Use Start: Unknown End: Former Cigarette Smoker quit 30 years ago Unknown Smoking Status Reviewed: 07/15/19 Former Cigarette Smoker quit 30 years ago ETOH Use Drinks Alcoholic Beverages Rarely Tobacco Use Start: Unknown End: Patient is a former Unknown smoker Recreational Drug Use Denies Drug Use Exercise Type/Frequency Exercises sporadically Allergies, Adverse Reactions, Alerts Description No Known Drug Allergies Medications Active Medications SIG Qnty Indications Ordering Date Provider Aspirin Adult Low 1 by mouth every day 90tabs E83.42 Ky Sanders 07/15/2019 Dose DO BARON Dey 81mg Tablets DR Metformin HCL take two tablet by Unknown 500mg mouth twice a day Tablets Lisinopril 1 by mouth every day Unknown 20mg Tablets Clonazepam 1.5 mg PO tid prn Unknown 1mg Tablets Magnesium Oxide 1 by mouth once daily 180caps Ky Sanders DO JUVE DeyC 400mg Capsules Atorvastatin 1 by mouth every day Unknown Calcium 40mg Tablets Potassium Chloride take one Unknown Nini ER capsule/tablet daily 10Meq by mouth Tablets ER Metoprolol 1 by mouth bid Unknown Succinate ER 50mg Tablets ER 24HR Trulicity inject 1 dose Unknown subcutaneously once 1.5mg/0.5ML weekly Solution Pen-Inject Esomeprazole Take 1 Capsule By Unknown Magnesium Mouth Once Daily 40mg Capsules DR Uribe Description No Information Available Vital Signs Date Vital Result Comment 07/15/2019 1:22pm Height 69 inches 5'9" Weight 235.00 lb with sandals Heart Rate 82 /min BP Systolic Sitting 120 mmHg Rue reg cuff BP Diastolic Sitting 70 mmHg Rue reg cuff BP Systolic Standing 120 mmHg Rue reg cuff BP Diastolic Standing 78 mmHg Rue reg cuff Respiratory Rate 16 /min BMI (Body Mass Index) 34.7 kg/m2 05/18/2019 4:39pm Height 69 inches 5'9" Weight 236.00 lb Heart Rate 84 /min BP Systolic Sitting 120 mmHg lue large cuff BP Diastolic Sitting 70 mmHg lue large cuff BP Systolic Standing 128 mmHg lue large cuff BP Diastolic Standing 70 mmHg lue large cuff Respiratory Rate 14 /min BMI (Body Mass Index) 34.8 kg/m2 Ejection Fraction none noted Results Description No Information Available Procedures Date Code Description Status 05/18/2019 72067 EKG Tracing & Interpretation Completed 04/24/2019 26977 Moderate Sedation Services; Same Phys Intl 15 Mins; PT >= Completed 5 Years 04/24/2019 90803 Color Flow Doppler/Interp & Reprt Completed 04/24/2019 83170 Pulse Wave/Continuous-Interp.RPT Completed 04/24/2019 28142 Echocardiography, Transesophageal, Real Time W/Image 2D Completed W/W/O M-M 04/24/2019 61441 EKG, Interpretation Only Completed 04/24/2019 34257 EKG, Interpretation Only Completed 04/24/2019 15434 Cardioversion Completed Medical Devices Description No Information Available Encounters Type Date Location Provider Dx Diagnosis Office Visit 05/18/2019 [facility] Ky Dey I48.3 Typical atrial 4:40p Of [employer] DO FACC flutter E61.2 Magnesium deficiency E87.6 Hypokalemia E11.9 Type 2 diabetes mellitus without complications I10 Essential (primary) hypertension E78.5 Hyperlipidemia, unspecified I70.0 Atherosclerosis of aorta Office Visit 04/24/2019 2:02p [facility] Ky Sanders I48.3 Typical atrial Of [employer] Dey, DO FACC flutter E61.2 Magnesium deficiency E87.6 Hypokalemia I10 Essential (primary) hypertension E11.9 Type 2 diabetes mellitus without complications Office Visit 04/24/2019 8:48a [facility] Andree Ezra, I48.91 Unspecified atrial Assoc,pc N.P. fibrillation Hospitalists E11.9 Type 2 diabetes mellitus without complications I10 Essential (primary) hypertension Office Visit 04/23/2019 4:37p [facility] Ky Sanders I48.3 Typical atrial Of Eduardo Dey, DO FACC flutter E61.2 Magnesium deficiency E87.6 Hypokalemia I10 Essential (primary) hypertension E11.9 Type 2 diabetes mellitus without complications Office Visit 04/23/2019 [facility] R00.0 Tachycardia, 8:48a Assoc,pc Shortle, [employer] HELPER unspecified Hospitalists I48.92 Unspecified atrial flutter E87.6 Hypokalemia E11.9 Type 2 diabetes mellitus without complications Assessments Date Code Description Provider 07/15/2019 E83.42 Hypomagnesemia Ky Dey, DO FACC 07/15/2019 I48.3 Typical atrial flutter Kyhumphrey Meekno, DO FACC 07/15/2019 I10 Essential (primary) hypertension Ky SJamil Meekno, DO FACC 07/15/2019 E78.5 Hyperlipidemia, unspecified Ky SJamil Meekno, DO FACC 07/15/2019 E11.9 Type 2 diabetes mellitus without Ky SJamil Meekno, DO FACC complications 07/15/2019 I70.0 Atherosclerosis of aorta Kyhumphrey Meekno, DO FACC 05/18/2019 I48.3 Typical atrial flutter Kyhumphrey Meekno, DO FACC 05/18/2019 E61.2 Magnesium deficiency Ky S. Dey, DO FACC 05/18/2019 E87.6 Hypokalemia Ky SJamil Meekno, DO FACC 05/18/2019 E11.9 Type 2 diabetes mellitus without Ky S. Dey, DO FACC complications 05/18/2019 I10 Essential (primary) hypertension Ky S. Dye, DO FACC 05/18/2019 E78.5 Hyperlipidemia, unspecified Ky S. Dey, DO FACC 05/18/2019 I70.0 Atherosclerosis of aorta Ky SJamil Meekno, DO FACC 04/24/2019 R94.31 Abnormal electrocardiogram [ECG] [EKG] Belinda Nolasco MD, [facility], FSCAI 04/24/2019 I49.9 Cardiac arrhythmia, unspecified Ky Dey, DO [facility] 04/24/2019 I48.91 Unspecified atrial fibrillation Andree Munguia, N.P. 04/24/2019 I48.3 Typical atrial flutter Ky Dey, DO [facility] 04/24/2019 E11.9 Type 2 diabetes mellitus without Andree Munguia, N.P. complications 04/24/2019 E61.2 Magnesium deficiency Ky Dey, DO [facility] 04/24/2019 I10 Essential (primary) hypertension Andree Munguia, N.P. 04/24/2019 E87.6 Hypokalemia Ky Dey, DO [facility] 04/24/2019 I10 Essential (primary) hypertension Ky Dey, DO [facility] 04/24/2019 E11.9 Type 2 diabetes mellitus without Ky Dey, DO [facility] complications 04/23/2019 R00.0 Tachycardia, unspecified Denae Shortle, [employer] HELPER 04/23/2019 I48.92 Unspecified atrial flutter Denae Shortle, [employer] HELPER 04/23/2019 I48.3 Typical atrial flutter Ky Dey, DO [facility] 04/23/2019 E87.6 Hypokalemia Denae Shortle, [employer] HEL[employer] 04/23/2019 E11.9 Type 2 diabetes mellitus without Denae Shortle, [employer] HEL[employer] complications 04/23/2019 E61.2 Magnesium deficiency Ky Dey, DO [facility] 04/23/2019 E87.6 Hypokalemia Ky Dey, DO [facility] 04/23/2019 I10 Essential (primary) hypertension Ky Dey, DO [facility] 04/23/2019 E11.9 Type 2 diabetes mellitus without Ky Dey, DO [facility] complications Plan of Treatment 07/15/2019 - Ky Dey DO [facility]83.42 HypomagnesemiaNew Medication: Aspirin Adult Low Dose 81 mg - 1 by mouth every dayComments:I would like to see your magnesium at 2.0 or greaterThe proton pump inhibitor lowers this levelIncrease magnesium oxide from once to twice dailyOnce the magnesium is at 2 or greater, you might not needthe potassium supplement anymore. You will probably need a magnesium supplement forever. Stop taking eliquis. Keep the rest at home in case you go back into atrial flutter. Start taking aspirin 81 mg instead.Follow up:f/u 1 yearI48.3 Typical atrial qamohtcA21 Essential ( primary) cmvvnjlcbhbdI67.5 Hyperlipidemia, bbkmaezcjmdK63.9 Type 2 diabetes mellitus without cgpjfhdbmzihjX39.0 Atherosclerosis of aorta Functional Status Description No Information Available Mental Status Description No Information Available Referrals Description No Information Available
[2019-07-26 14:03] LABS: Albumin 4.3 g/dL (3.2-5.2); Albumin/Globulin Ratio 1.5 (1-3); EGFR African American 142.8 (>60); Globulin 2.8 g/dL (2-4); Potassium 4.2 mmol/L (3.5-5.0); Total Bilirubin 0.9 mg/dL (0.2-1.0); Total Protein 7.1 g/dL (6.4-8.9)
[2019-07-26 14:05] LABS: Troponin I 0.02 ng/mL (<0.04)
[2019-07-26 17:25] VITALS: BP 125/46
--- NOTE | 2019-07-26 20:50 | CONS ---
CC: Dr. Day; Dr. Dey * HOSPITAL MEDICINE CONSULTATION REPORT: DATE OF CONSULT: 07/26/19 PRIMARY CARE PHYSICIAN: Dr. Day. OPERATIONS LOGISTICS ANALYST: Dr. Dey. ATTENDING PHYSICIAN: Hina Kim DO (dictation provided by Andree Munguia NP). REASON FOR CONSULTATION: Question regarding need for observation stay in the hospital. HISTORY OF PRESENT ILLNESS: Ms. Bailey is a 64-year-old female with a past medical history of diabetes and hypertension as well as atrial fibrillation, who presents today to the hospital with concern for a brief episode of chest pain. Ms. Bailey states that she has been feeling in her normal state of health with no acute complaints. She was recently admitted to our hospital with discharge on 04/25/19 after being cardioverted successfully after an episode of atrial fibrillation. Since then, she has followed up with Dr. Dey on 07/15/[address] Day subsequent to that. There have been no other issues identified. There, she has been on the Holter monitor with no further episodes of AFib. She has been switched from Eliquis over to aspirin. The patient states that her hemoglobin A1c is much better controlled that she is working. She states that she has active lifestyle with no chest pain at any time. Today, she awoke and early in the morning, she had the sensation of chest discomfort. It was localized, pinpoint discomfort in the left upper chest. It did not radiate. It was not associated with diaphoresis. 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 With this activity, the pain did not worsen or lessen and nothing seemed to make the pain worse or better. Ultimately around lunchtime, she decided to come to the hospital for evaluation. On the way here to the hospital, the pain subsided and she has had no pain since. She denies any other symptoms. She has had no shortness of breath. No cough. No nausea, vomiting, diarrhea, or abdominal pain. In the emergency room, Ms. Bailey had labs, which showed a troponin of 0.02. She had an EKG, which showed no evidence of ischemia, but did not show PVCs. She has a D-dimer that is less than 200. She has a chest x-ray that shows no acute thoracic process. PAST MEDICAL HISTORY: 1. Vov-mnriwjj-olcsqkwic type 2 diabetes. 2. Atrial fibrillation, only on aspirin at this point after recent switch off Eliquis for negative Holter monitoring. 3. Hypertension. 4. Depression. PAST SURGICAL HISTORY: 1. Appendectomy. 2. Cholecystectomy. 3. Breast reduction. 4. . MEDICATIONS: As outpatient are: 1. Omeprazole 20 mg p.o. daily. 2. Metoprolol succinate 50 mg p.o. b.i.d. 3. Dulaglutide 1.5 mg subcutaneously weekly. 4. Potassium chloride 10 mEq p.o. daily. 5. Magnesium oxide 400 mg p.o. t.i.d. 6. Metformin 500 mg p.o. q.i.d. 7. Atorvastatin 40 mg p.o. daily. 8. Aspirin 81 mg p.o. daily. 9. Lisinopril 20 mg p.o. daily. ALLERGIES: No known drug allergies. FAMILY HISTORY: The patient is adopted. SOCIAL HISTORY: The patient is a former smoker, but she quit 30 years ago. There is no report of significant alcohol use. She is retired. She lives alone. Surrogate decision maker is her daughter, Angelita Campos, . REVIEW OF SYSTEMS: A 14-point review of systems was completed with Ms. Bailey and all those not mentioned above were negative. PHYSICAL EXAMINATION: Vital Signs: Temperature 97.6, pulse rate 111, respiratory rate 14, O2 saturation 100% on room air, blood pressure 134/90. General: Ms. Bailey is sitting up in the bed with her daughter at the bedside, she is in no acute distress. Neuro: She is alert. She is oriented x3. She moves all extremities equally. There is no facial asymmetry or focal weakness. Extraocular movements are intact. Heart: S1, S2. No murmur, rub, or gallop , and regular. Lungs: Clear to auscultation bilaterally with no accessory muscle use and good aeration. The abdomen is soft, nontender with bowel sounds positive x4. Extremities: No cyanosis or edema. Skin: Intact. DIAGNOSTIC STUDIES/LAB DATA: WBC 6.9, hemoglobin 13.8, hematocrit 40, platelet count 218. INR 1.09. D-dimer less than 200. Sodium 138, potassium 4.2, chloride 101, serum bicarbonate 28, BUN 13, creatinine 0.52, glucose 126. Troponin 0.02. Chest x-ray shows no acute intrathoracic process. EKG shows a ventricular trigeminy with no evidence of ischemia. ASSESSMENT AND PLAN: Ms. Bailey is a 64-year-old female with a past medical history of diabetes, hypertension, and atrial fibrillation, who presents today to the hospital with concern for a self-limited episode of chest pain unrelated to activity. She is pain-free at this moment. Her first troponin was negative and her repeat troponin is pending now. Her EKG shows no evidence of ischemia. Based on the review of her risk factors, she has a ALEXEY score of 1 and is chest pain-free thus far with a negative workup. I think if her second troponin is negative, that would be appropriate for her to be discharged home for an outpatient cardiac stress test and this has been ordered for her. I have reviewed this with the emergency room physician, and he is aware that she will be appropriate for discharge after the second troponin if it is negative. Certainly, if the troponin is increasing and it becomes positive, we will admit her to the hospital for more urgent stress testing. I have encouraged her strongly to return to the emergency room immediately should she have further chest pain or other concerning symptoms. We also encouraged her to call the hospital in the morning if she does not hear from [facility] to make sure the stress test is arranged. If she has any problems with that, she can also try reaching out to Dr. Dey's office. TIME SPENT: Approximately 60 minutes were spent in the consultation of this patient, more than half the time spent with the patient at the bedside, reviewing the events leading up to this hospitalization, performing the physical examination. ANDREE MUNGUIA NP [id number]/[facility] #: [id number] [place]
== END 2019-07-26 17:25 | disposition home or self-care (01) ==
LOC: ED 13:06
DX: R07.9 Chest pain, unspecified (principal); R06.02 Shortness of breath; E11.9 Type 2 diabetes mellitus without complications; I10 Essential (primary) hypertension; K21.9 Gastro-esophageal reflux disease without esophagitis; F32.9 Major depressive disorder, single episode, unspecified; Z79.82 Long term (current) use of aspirin; Z79.899 Other long term (current) drug therapy; R00.2 Palpitations
CPT/HCPCS: 36415; 71045; 80053; 84484; 85025; 85379; 85610; 93005; 99283; A9270-GY